=== PATIENT | male | born 1965 | race Caucasian/White ===

== ENCOUNTER → 2020-08-24 14:06 | Outpatient (BNVA) | payer BC, SELFPAY | PROVIDERS: Visit Provider Counselor Professional | DX: F43.12 Post-traumatic stress disorder, chronic (principal); F41.0 Panic disorder [episodic paroxysmal anxiety] | CPT/HCPCS: 90791 ==

== ENCOUNTER → 2020-12-07 13:10 | Outpatient (BNVA) | payer BC, SELFPAY | PROVIDERS: Visit Provider Psychiatry & Neurology Psychiatry | DX: F43.12 Post-traumatic stress disorder, chronic (principal); F33.1 Major depressive disorder, recurrent, moderate; F41.1 Generalized anxiety disorder | CPT/HCPCS: 99204 ==

== ENCOUNTER → 2021-01-10 08:56 | Outpatient (BNVA) | payer BC, SELFPAY | PROVIDERS: Visit Provider Psychiatry & Neurology Psychiatry | DX: F41.1 Generalized anxiety disorder (principal); F33.1 Major depressive disorder, recurrent, moderate; F43.12 Post-traumatic stress disorder, chronic | CPT/HCPCS: 99214 ==

== ENCOUNTER 2023-08-08 14:54 | Emergency (ER) | payer OTHER, BC, SELFPAY ==
[2023-08-08] VITALS (12 sets, daily range): BP systolic 108–143; BP diastolic 73–88; PULSE 80–100; RESP 14–20; TEMP 37.1; O2SAT 95–98; BMI 32.1
--- NOTE | 2023-08-08 15:00 | ECG_ITS ---
[facility] Test Date: 2023-08-08 Pat Name: Anthony Wilde Department: Room: Gender: Male Lab Specialist: : 1965 Requested By: Stephen Carrion Order Number: [id number] Yu MD: Lazaro Virgen M.D. Measurements Intervals [place] Rate: 94 P: 63 [place]: 130 QRS: 77 QRSD: 92 T: 49 QT: 354 QTc: 444 Interpretive Statements SINUS RHYTHM POSSIBLE LEFT ATRIAL ENLARGEMENT [-0.1mV P-WAVE IN V1/V2] INCOMPLETE RIGHT BUNDLE BRANCH BLOCK [90+ ms QRS DURATION, TERMINAL R IN V1/V2, 40+ ms S IN I/aVL/V4/V5/V6] No previous ECG available for comparison Electronically Signed On 08-10-2023 14:08:21 MIDDLE SCHOOL TECHNOLOGY TEACHER by Lazaro Virgen M.D. [id number]
--- NOTE | 2023-08-08 15:05 | XR_ITS ---
WS: [id number] Exam: XR chest 1V portable [id number] Date/Time of Exam: 08/08/2023 3:07 PM Reason For Exam: chest pain No priors. The lungs are hyperinflated and clear. Heart size is normal. Signs of previous CABG surgery and coron serena artery stenting. No pleural effusions. Bony structures are intact. IMPRESSION: 1. Pulmonary hyperinflation which might indicate obstructive lung disease. No acute process.
[2023-08-08 15:37] LABS: Basophils % 0.5 %; Eosinophils # 0.2 10^3/uL (0.0-0.8); Eosinophils % 2.3 %; Hematocrit 42.3 % (37-53); Lymphocytes # 1.3 10^3/uL (0.8-4.8); Lymphocytes % 16.6 %; Mean Corpuscular HGB Conc 33.3 g/dL (30-55); Mean Corpuscular Hemoglobin 30.1 pg (27-33); Mean Corpuscular Volume 90.2 fl (82-101); Mean Platelet Volume 8.8 fL (7.4-10.4); Monocytes # 0.6 10^3/uL (0.2-0.9); Neutrophils # 5.71 10^3/uL (1.8-7.7); Neutrophils % 73.2 %; Nucleated Red Blood Cells % 0 %; Platelet Count 220 10^3/cmm (157-399); Red Blood Count 4.69 10^6/uL (3.85-5.65); Red Cell Distribution Width 13.5 % (12.1-15.1); White Blood Count 7.81 10^3/uL (3.29-11.43)
[2023-08-08 15:45] LABS: INR 1.03 (0.8-1.2)
[2023-08-08 15:51] LABS: Troponin(5th) Baseline 11 ng/L (0-15)
[2023-08-08 15:52] LABS: Alanine Aminotransferase 15 U/L (0-41); Albumin Level 4.5 g/dL (3.5-5.2); Alkaline Phosphatase 119 U/L (40-130); Anion Gap 16.3 (5-19); Aspartate Amino Transferase 22 U/L (0-40); Blood Urea Nitrogen 15 mg/dL (6-20); Calcium 9.2 mg/dL (8.5-10.5); Carbon Dioxide 24 mmol/L (22-29); Chloride 104 mmol/L (98-107); Globulin 2.4 g/dL (1.3-4.6); Glucose 119 mg/dL (65-115); Magnesium 2.1 mg/dL (1.7-2.3); Osmolality Calculated 292 mOsm/kg (285-295); Potassium 4.3 mmol/L (3.5-5.1); Sodium 140 mmol/L (136-145); Total Bilirubin 0.7 mg/dL (0.15-1.2); Total Protein 6.9 g/dL (6.6-8.7)
--- NOTE | 2023-08-08 16:28 | ED_ITS ---
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 Patient states he lives in chronic pain 3-4 every day from his chest just due to poor blood flow and he is on Dilaudid and hydrocodone for this pain. Patient states that last night it got worse and he had to take some Dilaudid. 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 Ford in [facility] [place]. Patient is currently on Eliquis, metoprolol, isosorbide, Zetia, Review of Systems General: Reports: 10 or more systems reviewed and unremarkable except in HPI and below PFSH ED PFSH: Social History Current gender identity: Male Physical Exam Const: COMMON NORMALS: no acute distress, average body habitus, patient oriented x3, no limitations, healthy appearing, alert and well nourished HENMT: COMMON NORMALS: normocephalic, atraumatic, hearing grossly normal bilaterally, external ears normal, Normal external nose present, moist oral mucous membranes and oropharynx normal HEAD & SCALP: normocephalic and atraumatic NOSE: Normal external nose present EXTERNAL EAR: Yes external ears normal Neck/C-Spine: COMMON NORMALS: no JVD Chest: COMMONS NORMALS: normal inspection of the chest and normal palpation of entire chest wall Resp: COMMON NORMALS: normal respiratory effort, No retractions, No use of accessory muscles and clear to auscultation bilaterally AUSCULTATION: clear to auscultation bilaterally Cardio: COMMON NORMALS: no JVD, regular rate, regular rhythm, S1 normal heart sound present, S2 normal heart sound present, No gallops present (Cardio), No clicks present (Cardio), No murmurs present (Cardio) and No rub (Cardio) RATE: regular rate RHYTHM: regular rhythm HEART SOUNDS: S1 normal heart sound present and S2 normal heart sound present GI: COMMON NORMALS: Normal to inspection, nondistended, normoactive bowel sounds present, Soft to palpation, non-tender, No hepatosplenomegaly present and no masses PALPATION: Yes Soft to palpation and Yes No hepatosplenomegaly present Neuro: COMMON NORMALS: patient oriented x3 SENSORIUM/ORIENTATION: Yes alert Course Vital Signs: Vital signs: Vital Signs Temperature 98.8 F 08/08/23 14:57 Pulse Rate 89 08/08/23 19:37 Respiratory Rate 16 08/08/23 19:37 Blood Pressure 133/83 08/08/23 19:37 Pulse Oximetry 96 08/08/23 19:37 Oxygen Delivery Me thod Room Air 08/08/23 16:10 MDM - Chest Pain Medical Decision Making Patient presented to the ER with complaints of chest pain with an extensive cardiac history. Patient was worked up in a standard cardiac fashion with serial troponins EKGs and labs. Troponin baseline was 10 troponin at 120 was 10.6 and troponin at 6-hour was 9.2 EKGs were nonacute and stable. Patient be discharged home Differential Diagnosis Unlikely acute massive pulmonary embolism, acute respiratory failure, acute myocardial infarction, cardiac arrest or sudden cardiac Medical Records I reviewed the patient's medical records. Lab Data I reviewed the patient's lab results. 08/08/23 15:26 08/08/23 15: Laboratory Results WBC 7.81 10^3/uL (3.29-11.43) 08/08/23 15: RBC 4.69 10^6/uL (3.85-5.65) 08/08/23 15: Hgb 14.10 g/dL (11.27-16.99) 08/08/23 15: Hct 42.3 % (37-53) 08/08/23 15: MCV 90.2 fl (82-101) 08/08/23 15: MCH 30.1 pg (27-33) 08/08/23 15: MCHC 33.3 g/dL (30-55) 08/08/23 15: RDW 13.5 % (12.1-15.1) 08/08/23 15: Plt Count 220 10^3/cmm (157-399) 08/08/23 15: MPV 8.8 fL (7.4-10.4) 08/08/23: Neut % (Auto) 73.2 % 08/08/23 15: Lymph % (Auto) 16.6 % 08/08/23 15: [place] % (Auto) 7.0 % 08/08/23 15: Eos % (Auto) 2.3 % 08/08/23 15: Baso % (Auto) 0.5 % 08/08/23: Neut # (Auto) 5.71 10^3/uL (1.8-7.7) 08/08/23: Lymph # (Auto) 1.3 10^3/uL (0.8-4.8) 08/08/23 15: [place] # (Auto) 0.6 10^3/uL (0.2-0.9) 08/08/23: Eos # (Auto) 0.2 10^3/uL (0.0-0.8) 08/08/23: Baso # (Auto) 0.0 10^3/uL (0.0-0.1) 08/08/23: Nucleated RBC % (auto) 0 % 08/08/23 15: Nucleated RBCs # 0.0 /100WBC 08/08/23 15: PT 13.80 SECONDS (12.1-14.9) 08/08/23: INR 1.03 (0.8-1.2) 08/08/23 15: Sodium 140 mmol/L (136-145) 08/08/23 15: Potassium 4.3 mmol/L (3.5-5.1) 08/08/23: Chloride 104 mmol/L (98-107) 08/08/23: Carbon Dioxide 24 mmol/L (22-29) 08/08/23: Anion Gap 16.3 (5-19) 08/08/23: BUN 15 mg/dL (6-20) 08/08/23 15: Creatinine 1.1 mg/dL (0.7-1.2) 08/08/23 15: GFR Calculation 69.0 mL/min (90-130) L 08/08/23 15: Glucose 119 mg/dL (65-115) H 08/08/23 15: Calculated Osmolality 292 mOsm/kg (285-295) 08/08/23 15:26 Calcium 9.2 mg/dL (8.5-10.5) 08/08/23 15:26 Magnesium 2.1 mg/dL (1.7-2.3) 08/08/23 15:26 Total Bilirubin 0.7 mg/dL (0.15-1.2) 08/08/23 15:26 AST 22 U/L (0-40) 08/08/23 15:26 ALT 15 U/L (0-41) 08/08/23 15:26 Alkaline Phosphatase 119 U/L (40-130) 08/08/23 15:26 Troponin T Baseline 11 ng/L (0-15) 08/08/23 15:26 Troponin T 120 Minute 10.63 ng/L (0-15) 08/08/23 17:30 Delta Troponin T -0.37 ABS# (0-10) L 08/08/23 17:30 Troponin T Hi Sens 6Hr 9.29 ng/L (0-15) 08/08/23 21:19 Troponin T Hi Sens 6Hr Delta -1.71 ng/L (0-12) L 08/08/23 21:19 Total Protein 6.9 g/dL (6.6-8.7) 08/08/23 15:26 Albumin 4.5 g/dL (3.5-5.2) 08/08/23 15:26 Globulin 2.4 g/dL (1.3-4.6) 08/08/23 15:26 All radiology interpretation(s) finalized by discharge EKG Data EKG 1: I personally reviewed and interpreted this EKG as follows: EKG interpretation date: 08/08/23 EKG interpretation time: 15:00 Prior EKG tracings: not available for review Interpretation: EKG shows ventricular rate 94 beats a minute, IN interval 130, QRS 92, QTc of 444, sinus rhythm, possible left atrial enlargement, incomplete right bundle branch block, EKG 2: I personally reviewed and interpreted this EKG as follows: EKG interpretation date: 08/08/23 EKG interpretation time: 17:05 Prior EKG tracings: available for review Interpretation: EKG showed ventricular rate 101 bpm, IN interval 136, QRS duration 89, QTc of 405, sinus tachycardia, possible left atrial lodgment, possible right ventricular conduction delay EKG 3: I personally reviewed and interpreted this EKG as follows: EKG interpretation date: 08/08/23 EKG interpretation time: 21:47 Prior EKG tracings: available for review Interpretation: EKG showed ventricular rate 84 bpm, IN interval 131, QRS duration 107, QTc of 418, sinus rhythm, possible left atrial lodgment, incomplete right bundle branch block, Discharge Plan Discharge Patient Disposition: Home Clinical Impression: Chest pain Qualifiers: Chest pain type: unspecified Qualified Code(s): R07.9 - Chest pain, unspecified Condition: Stable Prescriptions: No Action alfuzosin 10 mg tablet extended release 24 hr 10 mg PO DAILY Rx Instructions: administer after the same meal each day Eliquis 5 mg tablet 5 mg PO BID ezetimibe 10 mg tablet 10 mg PO DAILY isosorbide dinitrate 20 mg tablet 20 mg PO BID Rx Instructions: allow nitrate-free interval of 12-14 hrs per 24-hr period lorazepam 0.5 mg tablet 0.5 mg PO Q6H PRN metoprolol succinate 100 mg tablet extended release 24 hr 200 mg PO BID pantoprazole [address] for susp in packet 40 mg PO DAILY promethazine 25 mg tablet 25 mg PO Q6H PRN fluoxetine 20 mg capsule 60 mg PO DAILY Qty: 90 2RF prazosin 2 mg capsule 2 mg PO .HS Qty: 30 2RF hydrocodone-acetaminophen 5-325 mg tablet 2 tab PO Q4H PRN (Reason: pain) nitroglycerin 0.4 mg tablet, sublingual 0.4 mg sublingual Q5M PRN Rx Instructions: do not exceed 3 doses per episode albuterol sulfate 90 mcg/actuation aerosol powdr breath activated 2 inh inhalation Q6H PRN Discharge Orders: Discharge ED (Routine); Ordered 08/08/23 Ordered By: Stephen Carrion Referrals: aCrlin Guillaume [Primary Care Provider] - Patient Instructions: Chest Pain (ED) Activity Restrictions/Additional Instructions: your cardiac enzymes including troponin were stable during her stay at the hospital. please follow-up with your munitions handler supervisor or primary care physician within the next 7 to 10 days or sooner as needed for further evaluation and treatment. If your pain worsens please feel free to return to the ER. Coding Level of Care Code ED Home Care Giver for Ceci Naranjo
[2023-08-08] MEDS: ondansetron 2 mg/ML SDV 2 mL 4 MG IVP (16:59)
[2023-08-08] MEDS: nitroglycerin 0.4 mg sublingual Tablet SUBLINGUAL (16:59)
--- NOTE | 2023-08-08 17:05 | ECG_ITS ---
[facility] Test Date: 2023-08-08 Pat Name: Anthony Wilde Department: Room: Gender: Male Controller Operations And Hr Manager: : 1965 Requested By: Stephen Carrion Order Number: [id number] Yu MD: Lazaro Virgen M.D. Measurements Intervals [place] Rate: 101 P: 60 [place]: 136 QRS: 71 QRSD: 89 T: 43 QT: 347 QTc: 450 Interpretive Statements SINUS TACHYCARDIA POSSIBLE LEFT ATRIAL ENLARGEMENT [-0.1mV P-WAVE IN V1/V2] POSSIBLE RIGHT VENTRICULAR CONDUCTION DELAY [RSR (QR) IN V1/V2] ABNORMAL RHYTHM ECG Compared to ECG 08/08/2023 15:00:27 Sinus rhythm no longer present Incomplete right bundle-branch block no longer present Electronically Signed On 08-10-2023 14:16:18 ORACLE DATABASE DEVELOPER by Lazaro Virgen M.D. [id number]
[2023-08-08] MEDS: promethazine 25 mg/mL SDV 1 mL IM (17:37)
[2023-08-08] MEDS: HYDROmorphone 1 mg/mL INJ 1 mL 0.5 MG IVP ×3 (17:37→22:11)
[2023-08-08 18:33] LABS: Troponin 5 2HR 10.63 ng/L (0-15); Troponin 5 2HR Delta -0.37 ABS# (0-10)
--- NOTE | 2023-08-08 21:47 | ECG_ITS ---
[facility] Test Date: 2023-08-08 Pat Name: Anthony Wilde Department: Room: Gender: Male Secretarial Teacher: : 1965 Requested By: Stephen Carrion Order Number: [id number] Aimee MD: Lazaro Virgen M.D. Measurements Intervals [place] Rate: 84 P: 54 [place]: 131 QRS: 66 QRSD: 107 T: 57 QT: 377 QTc: 448 Interpretive Statements SINUS RHYTHM POSSIBLE LEFT ATRIAL ENLARGEMENT [-0.1mV P-WAVE IN V1/V2] INCOMPLETE RIGHT BUNDLE BRANCH BLOCK [90+ ms QRS DURATION, TERMINAL R IN V1/V2, 40+ ms S IN I/aVL/V4/V5/V6] Compared to ECG 08/08/2023 17:05:26 Incomplete right bundle-branch block now present Sinus tachycardia no longer present Electronically Signed On 08-10-2023 14:16:53 CLINICAL TRIAL EDUCATOR by Lazaro Virgen M.D. [email or web address] Research.Boreal GenomicsIron Will Innovationsuc health.[employer]./store/NU/[id number] f
[2023-08-08 21:48] LABS: Troponin 5 6HR 9.29 ng/L (0-15); Troponin 5 6HR Delta -1.71 ng/L (0-12)
== END 2023-08-08 22:28 | disposition home or self-care (01) ==
PROVIDERS: Emergency Provider Emergency Medicine; PCP Family Medicine
DX: R07.9 Chest pain, unspecified (principal); Z79.01 Long term (current) use of anticoagulants
CPT/HCPCS: 36415; 71045; 80053; 83735; 84484; 85025; 85610; 93005; 96372; 96374; 96375; 96376; 99284; J1170; J2405; J2550

== ENCOUNTER 2024-03-15 13:44 | Inpatient (IN) | payer OTHER, SELFPAY ==
[2024-03-15] VITALS (33 sets, daily range): BP systolic 76–164; BP diastolic 48–91; PULSE 44–75; RESP 0–22; TEMP 36.9–37.1; O2SAT 91–99; BMI 28.8
--- NOTE | 2024-03-15 13:50 | ECG_ITS ---
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 Measurements Intervals [place] Rate: 79 P: 70 [place]: 137 QRS: 88 QRSD: 90 T: 21 QT: 383 QTc: 439 Interpretive Statements SINUS RHYTHM POSSIBLE RIGHT VENTRICULAR CONDUCTION DELAY [RSR (QR) IN V1/V2] NONSPECIFIC T-WAVE ABNORMALITY Compared to ECG 08/08/2023 21:47:56 T-wave abnormality now present Incomplete right bundle-branch block no longer present Electronically Signed On 03-16-2024 9:57:03 CDT by Lazaro Virgen M.D. [email or web address].[email or web address] Networkspremier health [facility].PayProp/store/NU/[id number] f
--- NOTE | 2024-03-15 14:07 | XRR_ITS ---
PROCEDURE INFORMATION: Exam: XR Chest Exam date and time: 03/15/2024 2:34 PM Age: 58 years old Clinical indication: Chest pressure; Patient HX: Chest pain; HX cabg 2018; Additional info: Cp TECHNIQUE: Imaging protocol: Radiologic exam of the chest. Views: 1 view. COMPARISON: CR XR chest 1V portable [id number] 08/08/2023 4:12 PM FINDINGS: Lungs: There is scarring in the mid to lower left lung field similar to the prior study. Minimal overlying hazy opacities present in this region as well which is less prominent when compared to the prior study. Pleural spaces: Unremarkable. No pleural effusion. No pneumothorax. Heart/Mediastinum: Unremarkable. No cardiomegaly. Bones/joints: Unremarkable. Other findings: There are post-sternotomy changes and postoperative changes overlying the mediastinum. XR/XR chest 1V portable [id number] IMPRESSION: There is minimal hazy opacity in the mid to lower left lung field which is less prominent when compared to the prior study.
--- NOTE | 2024-03-15 14:09 | W.ED.CHESTPA ---
HPI - Chest Pain General: Chief Complaint: Chest Pain Stated Complaint: chest pain Time Seen by Provider: 03/15/24 14:00 History of Present Illness: 58-year-old male presents with chest pain. Patient has a cardiac history. He reports he has been having on and off chest pain for couple weeks. It was worse this morning. He took 4 nitros this morning got better. He then got chest pain again and took another nitro and it helped. He had an echo at [facility] yesterday that he showed me results that showed no acute or significant findings. Patient had a cardiac cath earlier this year and at that time there is no indication for stenting. Associated symptoms: Deny dyspnea, fever(s) or palpitations Review of Systems Const: Denies: fever(s) or chills Card: Reports: chest pain; Denies: palpitations or irregular heart rhythm Resp: Denies: dyspnea, productive cough or wheezing Musc: Denies: neck pain or back pain Skin/Breast: Denies: rash Neuro: Denies: headache(s) or numbness in extremities Psych: Denies: anxiety or depression [facility] ED PFSH: Social History Current gender identity: Male Physical Exam Const: COMMON NORMALS: no acute distress, patient oriented x3, no limitations and alert Resp: COMMON NORMALS: normal respiratory effort, No retractions and No use of accessory muscles Cardio: COMMON NORMALS: regular rate and regular rhythm RATE: regular rate RHYTHM: regular rhythm Extremity: COMMON NORMALS: normal to inspection, full ROM and capillary refill normal Neuro: COMMON NORMALS: patient oriented x3, CN's II-XII intact bilaterally, moves all extremities and no focal motor deficits SENSORIUM/ORIENTATION: Yes alert Psych: COMMON NORMALS: mental status grossly normal, Normal thought process present and cooperative THOUGHT PROCESS: Normal thought process present Skin: COMMON NORMALS: no rashes or lesions noted and turgor normal GENERAL SKIN EXAM: no rashes or lesions noted and turgor normal Course Vital Signs: Vital signs: Vital Signs Temperature 98.4 F 03/15/24 13:51 Pulse Rate 55 L 03/15/24 16:30 Respiratory Rate 17 03/15/24 15:06 Blood Pressure 108/60 03/15/24 16:30 Pulse Oximetry 93 03/15/24 16:30 Oxygen Delivery Me thod Room Air 03/15/24 16:05 MDM - Chest Pain Medical Decision Making Patient's diagnostic studies were reviewed interpreted by me. Patient's labs show no acute findings with a negative troponin. Patient has been having his symptoms of on and off chest pain for quite some time. Patient had a negative echo yesterday in which I reviewed outpatient results that he had. Patient is EKG shows sinus rhythm, ventricular rate 79, ME 137, QRS 90 with nonspecific changes with no acute ST changes or elevation noted. Discussed findings with patient. Did offer him transfer to [facility] where his spa concierge is if he felt that that would be indicated. He did also state that he had a negative cath regarding need for stent less than 5 months ago. Patient has been having symptoms for 18 years patient has Dilaudid at home for pain. Patient was initially discharged and then he had another vagal response. Patient returned into the ER. We will admit him for further evaluation due to his repeated vagal response and bradycardia. Patient had another negative EKG that is unchanged. Patient to be admitted to Dr. Green for further inpatient evaluation. Lab Data 03/15/24 14:30 03/15/24 14:30 Radiology Impressions Chest X-Ray 03/15/24 14:07 IMPRESSION: There is minimal hazy opacity in the mid to lower left lung field which is less prominent when compared to the prior study. Laboratory Results WBC 5.64 10^3/uL (3.29-11.43) 03/15/24 14:30 RBC 4.02 10^6/uL (3.85-5.65) 03/15/24 14:30 Hgb 11.70 g/dL (11.27-16.99) 03/15/24 14:30 Hct 36.5 % (37-53) L 03/15/24 14:30 MCV 90.8 fl (82-101) 03/15/24 14:30 MCH 29.1 pg (27-33) 03/15/24 14:30 MCHC 32.1 g/dL (30-55) 03/15/24 14:30 RDW 14.1 % (12.1-15.1) 03/15/24 14:30 Plt Count 203 10^3/cmm (157-399) 03/15/24 14:30 MPV 9.1 fL (7.4-10.4) 03/15/24 14:30 Neut % (Auto) 70.9 % 03/15/24 14:30 Lymph % (Auto) 19.7 % 03/15/24 14:30 [place] % (Auto) 6.7 % 03/15/24 14:30 Eos % (Auto) 1.8 % 03/15/24 14:30 Baso % (Auto) 0.5 % 03/15/24 14:30 Neut # (Auto) 4.00 10^3/uL (1.8-7.7) 03/15/24 14:30 Lymph # (Auto) 1.1 10^3/uL (0.8-4.8) 03/15/24 14:30 [place] # (Auto) 0.4 10^3/uL (0.2-0.9) 03/15/24 14:30 Eos # (Auto) 0.1 10^3/uL (0.0-0.8) 03/15/24 14:30 Baso # (Auto) 0.0 10^3/uL (0.0-0.1) 03/15/24 14:30 Nucleated RBC % (auto) 0 % 03/15/24 14:30 Nucleated RBCs # 0.0 /100WBC 03/15/24 14:30 Sodium 139 mmol/L (136-145) 03/15/24 14:30 Potassium 4.1 mmol/L (3.5-5.1) 03/15/24 14:30 Chloride 103 mmol/L (98-107) 03/15/24 14:30 Carbon Dioxide 24 mmol/L (22-29) 03/15/24 14:30 Anion Gap 16.1 (5-19) 03/15/24 14:30 BUN 12 mg/dL (6-20) 03/15/24 14:30 Creatinine 0.9 mg/dL (0.7-1.2) 03/15/24 14:30 GFR Calculation 87.0 mL/min (90-130) L 03/15/24 14:30 Glucose 96 mg/dL (65-115) 03/15/24 14:30 Calculated Osmolality 288 mOsm/kg (285-295) 03/15/24 14:30 Calcium 8.9 mg/dL (8.5-10.5) 03/15/24 14:30 Total Bilirubin 0.4 mg/dL (0.15-1.2) 03/15/24 14:30 AST 14 U/L (0-40) 03/15/24 14:30 ALT 9 U/L (0-41) 03/15/24 14:30 Alkaline Phosphatase 97 U/L (40-130) 03/15/24 14:30 Troponin T Baseline 12 ng/L (0-15) 03/15/24 14:30 Total Protein 6.2 g/dL (6.6-8.7) L 03/15/24 14:30 Albumin 4.1 g/dL (3.5-5.2) 03/15/24 14:30 Globulin 2.1 g/dL (1.3-4.6) 03/15/24 14:30 XR interpretation done by ED provider, pending radiology final review EKG Data EKG 1: I personally reviewed and interpreted this EKG as follows: EKG interpretation date: 03/15/24 EKG interpretation time: 13:45 Interpretation: Sinus rhythm, ventricular rate 79, ME 137, QRS 90, QTc 417, nonspecific changes, no acute ST changes or elevation noted. Discharge Plan Discharge Patient Disposition: Admitted As Inpatient Clinical Impression: Nonspecific chest pain, Vagal reaction, Bradycardia Condition: Stable Coding Level of Care Code ED Preparation Department Supervisor for Ceci Naranjo
[2024-03-15 14:42] LABS: Basophils % 0.5 %; Eosinophils # 0.1 10^3/uL (0.0-0.8); Eosinophils % 1.8 %; Hematocrit 36.5 % (37-53); Lymphocytes # 1.1 10^3/uL (0.8-4.8); Lymphocytes % 19.7 %; Mean Corpuscular HGB Conc 32.1 g/dL (30-55); Mean Corpuscular Hemoglobin 29.1 pg (27-33); Mean Corpuscular Volume 90.8 fl (82-101); Mean Platelet Volume 9.1 fL (7.4-10.4); Monocytes # 0.4 10^3/uL (0.2-0.9); Monocytes % 6.7 %; Neutrophils % 70.9 %; Nucleated Red Blood Cells % 0 %; Platelet Count 203 10^3/cmm (157-399); Red Blood Count 4.02 10^6/uL (3.85-5.65); Red Cell Distribution Width 14.1 % (12.1-15.1); White Blood Count 5.64 10^3/uL (3.29-11.43)
[2024-03-15 15:02] LABS: Troponin(5th) Baseline 12 ng/L (0-15)
[2024-03-15] MEDS: fentaNYL 50 mcg/mL INJ 2mL IVP (15:06)
[2024-03-15 15:07] LABS: Alanine Aminotransferase 9 U/L (0-41); Albumin Level 4.1 g/dL (3.5-5.2); Alkaline Phosphatase 97 U/L (40-130); Anion Gap 16.1 (5-19); Aspartate Amino Transferase 14 U/L (0-40); Blood Urea Nitrogen 12 mg/dL (6-20); Calcium 8.9 mg/dL (8.5-10.5); Carbon Dioxide 24 mmol/L (22-29); Chloride 103 mmol/L (98-107); Creatinine Clr Calc Pharmacy 96.7222; Globulin 2.1 g/dL (1.3-4.6); Glucose 96 mg/dL (65-115); Osmolality Calculated 288 mOsm/kg (285-295); Potassium 4.1 mmol/L (3.5-5.1); Sodium 139 mmol/L (136-145); Total Bilirubin 0.4 mg/dL (0.15-1.2); Total Protein 6.2 g/dL (6.6-8.7)
[2024-03-15] MEDS: promethazine 25 mg/mL SDV 1 mL IM (15:37)
--- NOTE | 2024-03-15 15:49 | PC.NURSE ---
PT VITAL MONITOR NOTIFIED THIS NURSE THAT PT HEARTRATE HAD DROPPED TO 40S. REPEAT EKG DONE. REPEAT BLOOD PRESSURE. BLOOD PRESSURE 76/51. PT APPEARS PALE AND DIAPHORETIC. PT PLACED IN [place]. ADDITIONAL IV PLACED. MD AWARE. NO NEW ORDERS AT THIS TIME.
--- NOTE | 2024-03-15 16:07 | ECG_ITS ---
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 Measurements Intervals [place] Rate: 43 P: 59 SD: 149 QRS: 70 QRSD: 98 T: 65 QT: 456 QTc: 386 Interpretive Statements SINUS BRADYCARDIA INCOMPLETE RIGHT BUNDLE BRANCH BLOCK [90+ ms QRS DURATION, TERMINAL R IN V1/V2, 40+ ms S IN I/aVL/V4/V5/V6] Compared to ECG 03/15/2024 13:44:56 Incomplete right bundle-branch block now present Sinus rhythm no longer present T-wave abnormality no longer present Electronically Signed On 03-16-2024 9:57:15 CDT by Lazaro Virgen M.D. [email or web address] Medical SolutionsAlgiax Pharmaceuticalsthe [facility].Adviceme [employer]metics/store/OM/[id number]
--- NOTE | 2024-03-15 16:29 | PC.NURSE ---
MD DISCUSSED OPTION TO ADMIT PATIENT OR SEND PATIENT HOME WITH PATIENT. PATIENT STATES HE WANTS TO GO HOME. PATIENT EDUCATED ON WHEN TO COME BACK TO ER AND VERBALIZED UNDERSTANDING.
--- NOTE | 2024-03-15 16:44 | PC.NURSE ---
PROCEEDED WITH PATIENT DISCHARGE. PATIENT SIGNED DISCHARGE PAPERWORK AND WAS BEING WHEELED OUT TO CAR BY NURSE ANDUJAR. ABOUT 5 MINUTES AFTER WALKING OUT THE DOOR, NURSE ANDUJAR CALLED BACK TO THE NURSES STATION REQUESTING ASSISTANCE. PER NURSE CON, PATIENT STATED THAT HE FELT DIZZY AND NAUSEATED ALONG WITH BEING DIAPHORETIC. UPON ASSESSMENT BY THIS NURSE, PATIENT WAS PALE AND CLAMMY. BLOOD PRESSURE WAS 77/51 AND PULSE WAS 49. CHARGE NURSE AND PHYSICIAN NOTIFIED. PATIENT WAS GIVEN THE OPTION TO COME BACK INTO THE ER TO BE ADMITTED OR HE COULD GO HOME. PATIENT VERBALIZED WANTING TO BE ADMITTED.
[2024-03-15] MEDS: sodium chloride 0.9% 1,000 ML 999 ML IV (16:52)
--- NOTE | 2024-03-15 16:52 | ECG_ITS ---
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 Measurements Intervals [place] Rate: 45 P: 48 [place]: 147 QRS: 29 QRSD: 103 T: 57 QT: 471 QTc: 408 Interpretive Statements SINUS BRADYCARDIA POSSIBLE LEFT ATRIAL ENLARGEMENT [-0.1mV P-WAVE IN V1/V2] INCOMPLETE RIGHT BUNDLE BRANCH BLOCK [90+ ms QRS DURATION, TERMINAL R IN V1/V2, 40+ ms S IN I/aVL/V4/V5/V6] Compared to ECG 03/15/2024 15:45:28 No significant changes Electronically Signed On 03-16-2024 9:53:44 CDT by Lazaro Virgen M.D. [email or web address]/store/[id number]
[2024-03-15 17:08] LABS: D Dimer 1.09 ug/mLFEU (0-0.59)
--- NOTE | 2024-03-15 18:42 | P.HP_ITS ---
Providers/Chief Complaint 2 Admitting Physician: Khris Green MD Primary Care Provider: Carlin Redmond Chief Complaint: chest pain History of Present Illness Anthony Wilde is a 58 year old male With a past medical history of CAD, status post CABG at [facility], he also had further cardiac procedure at [facility], he has had 16 stents, he has had a full metal jacket to the LAD, he tells me that on his last coronary angiography in October, he had a couple of 70% lesions, he had 100% lesion to the distal LAD, he tells me that he has been having some chest discomfort for the last week, so he had an echocardiogram done at [facility], he tells me that for the last week he has had anterior chest pain, at times associated with exertion, substernal, at times it is relieved by nitroglycerin, feels nauseous at times, no fevers, chills, no cough, no pleurisy, no shortness of breath. He tells me that this morning he had episodes of chest pain, he took 4 nitroglycerin pills without improvement of chest pain so he came to the emergency room for evaluation, in the ER, his initial troponin was 12, EKG no acute ST-T wave changes, in the emergency room, due to his nausea he was given promethazine, patient had 2 vagal responses in the emergency room, with bradycardia, he denies losing any consciousness, currently sinus bradycardia, normotensive, alert oriented x 4, following all commands Review of Systems 2 Const: Denies: fever(s) or chills Card: Denies: chest pain Resp: Denies: dyspnea GI: Denies: abdominal pain Musc: Denies: neck pain or back pain Medications/Allergies Home Medications Medication Instructions Recorded Confirmed Last Taken Type alfuzosin 10 mg tablet,extended 10 mg PO DAILY 12/07/20 01/10/21 Unknown History release 24 hr apixaban 5 mg tablet (Eliquis) 5 mg PO BID 12/07/20 01/10/21 Unknown History ezetimibe 10 mg tablet 10 mg PO DAILY 12/07/20 01/10/21 Unknown History isosorbide dinitrate 20 mg tablet 20 mg PO BID 12/07/20 01/10/21 Unknown History lorazepam 0.5 mg tablet 0.5 mg PO Q6H PRN 12/07/20 01/10/21 Unknown History metoprolol succinate 100 mg 200 mg PO BID 12/07/20 01/10/21 Unknown History tablet,extended release 24 hr pantoprazole 40 mg granules 40 mg PO DAILY 12/07/20 01/10/21 Unknown History delayed-release for susp in packet promethazine 25 mg tablet 25 mg PO Q6H PRN 12/07/20 01/10/21 Unknown History albuterol sulfate 90 mcg/actuation 2 inh inhalation Q6H PRN 01/10/21 01/10/21 Unknown History breath activated powder inhaler fluoxetine 20 mg capsule 60 mg (3 x 20 mg) PO DAILY #90 caps 01/10/21 01/10/21 Unknown Rx hydrocodone 5 mg-acetaminophen 325 2 tab PO Q4H PRN pain 01/10/21 01/10/21 Unknown History mg tablet nitroglycerin 0.4 mg sublingual 0.4 mg sublingual Q5M PRN 01/10/21 01/10/21 Unknown History tablet prazosin 2 mg capsule 2 mg PO .HS #30 caps 01/10/21 01/10/21 Unknown Rx Allergies Allergy/AdvReac Type Severity Reaction Status Date / Time metoclopramide [From Reglan] Allergy Severe agitation Verified 03/15/24 13:55 Opioids - Morphine Analogues Allergy Mild does not Verified 03/15/24 13:55 work isosorbide Allergy ADR-Blurry Verified 03/15/24 13:58 Vision lisinopril Allergy ADR-Cough Verified 03/15/24 13:58 prochlorperazine Allergy ADR-Agitate Verified 03/15/24 13:55 [From Compazine] d MONONITRATE Allergy ADR-Blurry Uncoded 03/15/24 13:58 Vision PFSH Acute 2 PFSH: Medical History History of CAD (coronary artery disease) Surgical History History of heart artery stent History of coronary artery bypass graft Family History Other CAD (coronary artery disease) Social History Smoking and tobacco/nicotine status: never used tobacco/nicotine Alcohol intake: never Substance/Drug Use: never Current gender identity: Male Vitals/I&O/Wt Last Vital Signs Temp 98.4 F 03/15/24 13:51 Pulse 48 L 03/15/24 17:30 Resp 15 03/15/24 17:30 BP 117/65 03/15/24 17:30 Pulse Ox 99 03/15/24 17:30 O2 Del Method Room Air 03/15/24 18:00 Weight last 48 hrs Weight 86.183 kg Physical Exam 2 Const: COMMON NORMALS: no acute distress and patient oriented x3 HENMT: COMMON NORMALS: normocephalic HEAD & SCALP: normocephalic Eye: COMMON NORMALS: Equal, round and reactive pupils present and EOMs intact bilaterally Neck/C-Spine: COMMON NORMALS: no JVD Lymph: LYMPHATIC: no lymphadenopathy noted Resp: COMMON NORMALS: normal respiratory effort, No retractions, No use of accessory muscles and clear to auscultation bilaterally AUSCULTATION: clear to auscultation bilaterally Cardio: COMMON NORMALS: no JVD, regular rate, regular rhythm, S1 normal heart sound present and S2 normal heart sound present RATE: regular rate RHYTHM: regular rhythm HEART SOUNDS: S1 normal heart sound present and S2 normal heart sound present GI: COMMON NORMALS: Normal to inspection, nondistended, normoactive bowel sounds present, Soft to palpation and non-tender Extremity: COMMON NORMALS: no calf tenderness and no pedal edema Neuro: COMMON NORMALS: patient oriented x3, CN's II-XII intact bilaterally and moves all extremities Psych: COMMON NORMALS: mental status grossly normal Data 03/15/24 14:30 03/15/24 14:30 A&P Assessment and plan (1) Unstable angina: (2) Bradycardia: Plan Unstable angina -Complex cardiac history, full metal jacket LAD, 16 stents, CABG at [place], further cardiac interventions in [place] ? Plan ? Consult cardiology ? Heparin drip ? Nitroglycerin drip ? Dilaudid 0.5 mg every 4 hours as needed for pain ? Can consider Ranexa ? Aspirin ? Statin, ? Will hold off of beta-stephany due to bradycardia ? Cardiac echo ? Monitor for recurrent chest pain ? Monitor closely in the ICU ? Serial EKGs, serial troponins, telemetry monitoring Full code ?heparin for DVT prophylaxis Attestations 2 Medical Necessity Statement*: Patient requires hospitalization, inpatient, greater than 2 midnights, for unstable angina, vasovagal episode, bradycardia Diagnoses Unstable angina I20.0 Bradycardia R00.1
[2024-03-15 19:19] LABS: Platelet Count 179 10^3/cmm (157-399)
[2024-03-15 19:35] LABS: Lactic Sepsis W/Reflex 1.1 mmol/L (0.5-2.2)
[2024-03-15 19:37] LABS: Troponin 5 2HR 11.95 ng/L (0-15); Troponin 5 2HR Delta -0.05 ABS# (0-10)
[2024-03-15 19:40] LABS: INR 1.17 (0.8-1.2)
[2024-03-15] MEDS: aspirin 81 mg EC Tablet PO (19:46)
[2024-03-15 19:47] LABS: Chol HDL Ratio 2.84 mg/dL (1.0-5.00); Cholesterol 128 mg/dL (0-200); HDL Cholesterol 45 mg/dL (60-100); LDL Cholesterol Calculated 64 mg/dL (50-129); LDL HDL Ratio 1.42 RATIO (0.00-3.22); NT Pro B Type Natriuretic Pept 593 pg/mL (0-125); Thyroid Stimulating Hormone 1.84 uIU/mL (0.27-4.20); Triglycerides 97 mg/dL (0-150)
[2024-03-15] MEDS: heparin drip 25,000 UNIT/500 ML PREMIX 24 UNIT IV (19:49)
[2024-03-15] MEDS: nitroglycerin drip 50 MG/250 ML PREMIX IV (19:51)
--- NOTE | 2024-03-15 19:56 | PM.CONSULT ---
Providers/Reason For Consult Consulting Physician/Specialty*: Cardiovascular medicine Reason for Consult*: Chest pain Requesting Physician: Hospitalist Attending Physician: Khris Green MD Primary Care Provider: Carlin Redmond History of Present Illness History of Present Illness Anthony Wilde is a 58 year old male with a cardiac history. He has coronary disease and had two-vessel bypass surgery [facility] in 2018. He tells me that he has had constant chest pain since he had bypass surgery until early October of this year when he says it was discovered the chest pain was related to Brilinta. He was taken off Brilinta. He tends to move from hospital to hospital having been seen in [facility], [facility] and in [place]. His last visit to the emergency room here was in July of last year where his EKGs were normal and his troponins were negative. He went to [place] and October and an angiogram was done. This revealed 50% proximal LAD lesion, 10% mid right coronary artery lesion, 20% ramus intermedius lesion, 30% first obtuse marginal lesion and 40 and 90% right posterior descending artery lesions. Ventriculography revealed mild left ventricular dysfunction with an ejection fraction of 55%. 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 The saphenous vein graft to the posterior descending artery was patent. There were no targets for intervention. The note said that there was no change from the angiogram of the April 06, 2023. An echo at that time revealed an ejection fraction of 62%. He states that he has done well until about 2 weeks ago when he started having chest pain frequently. He says it is severe anywhere from a 6 to a 10 on a 10 scale. He takes nitroglycerin without any benefit. This morning at 8:00 he had chest pain, took 4 nitroglycerin and came to the emergency room. He became nauseated in the emergency room, was given promethazine and then had an episode of bradycardia. His EKGs have been basically normal. There was one from the emergency room visit in July of last year which showed sinus rhythm with left atrial enlargement right ventricular conduction delay and no ST changes. Today he has had 3 EKGs all of which have been identical other than numbers 2 and 3 which were reflective of the bradycardia he had in the emergency room. There were no ST changes. His labs are all unremarkable. His chest x-ray is unremarkable. His troponins are 10 and 11. He tells me that he has had 16 stents. He also tells me he was evaluated for a transplant sometime last year in [place]. He says they told him that he was not eligible because his heart muscle was still good. Currently he tells me that he is having 6 out of 10 chest pain at rest. The hospitalist has ordered IV nitroglycerin and heparin. He knew he had been given fentanyl 50 mcg in the emergency room intravenously. He called the medication out to me by name. He also tells me that he takes Dilaudid at home for the pain. I would switch him over to narcotics by mouth. Review of Systems Narrative: Review of systems is negative Medications/Allergies Home Medications Medication Instructions Recorded Confirmed Last Taken Type alfuzosin 10 mg tablet,extended 10 mg PO DAILY 12/07/20 01/10/21 Unknown History release 24 hr apixaban 5 mg tablet (Eliquis) 5 mg PO BID 12/07/20 01/10/21 Unknown History ezetimibe 10 mg tablet 10 mg PO DAILY 12/07/20 01/10/21 Unknown History isosorbide dinitrate 20 mg tablet 20 mg PO BID 12/07/20 01/10/21 Unknown History lorazepam 0.5 mg tablet 0.5 mg PO Q6H PRN 12/07/20 01/10/21 Unknown History metoprolol succinate 100 mg 200 mg PO BID 12/07/20 01/10/21 Unknown History tablet,extended release 24 hr pantoprazole 40 mg granules 40 mg PO DAILY 12/07/20 01/10/21 Unknown History delayed-release for susp in packet promethazine 25 mg tablet 25 mg PO Q6H PRN 12/07/20 01/10/21 Unknown History albuterol sulfate 90 mcg/actuation 2 inh inhalation Q6H PRN 01/10/21 01/10/21 Unknown History breath activated powder inhaler fluoxetine 20 mg capsule 60 mg (3 x 20 mg) PO DAILY #90 caps 01/10/21 01/10/21 Unknown Rx hydrocodone 5 mg-acetaminophen 325 2 tab PO Q4H PRN pain 01/10/21 01/10/21 Unknown History mg tablet nitroglycerin 0.4 mg sublingual 0.4 mg sublingual Q5M PRN 01/10/21 01/10/21 Unknown History tablet prazosin 2 mg capsule 2 mg PO .HS #30 caps 01/10/21 01/10/21 Unknown Rx Allergies Allergy/AdvReac Type Severity Reaction Status Date / Time metoclopramide [From Reglan] Allergy Severe agitation Verified 03/15/24 13:55 Opioids - Morphine Analogues Allergy Mild does not Verified 03/15/24 13:55 work isosorbide Allergy ADR-Blurry Verified 03/15/24 13:58 Vision lisinopril Allergy ADR-Cough Verified 03/15/24 13:58 prochlorperazine Allergy ADR-Agitate Verified 03/15/24 13:55 [From Compazine] d MONONITRATE Allergy ADR-Blurry Uncoded 03/15/24 13:58 Vision Current Medications Generic Name Dose Route Start Last Admin Trade Name Freq PRN Reason Stop Dose Admin Aspirin 81 mg 03/15/24 18:40 03/15/24 19:46 Aspirin 81 Mg Ec Tablet PO 81 mg DAILY LUCIE Administration Nitroglycerin/Dextrose 50 mg in 250 mls @ 0 mls/hr 03/15/24 18:45 03/15/24 19:51 Nitroglycerin Drip IV 10 mcg/min .Q0M LUCIE 3 mls/hr Administration Protocol Per Protocol Heparin Sodium/Sodium Chloride 25,000 unit in 500 mls @ 0 mls/hr 03/15/24 18:45 03/15/24 19:49 Heparin Drip IV 13.92 unit/kg/hr .Q0M LUCIE 24 mls/hr Administration Protocol Per Protocol PFSH Acute PFSH: Medical History (Updated 03/15/24 @ 20:05 by Lazaro Virgen MD) History of CAD (coronary artery disease) Surgical History (Updated 03/15/24 @ 20:05 by Lazaro Virgen MD) History of heart artery stent History of coronary artery bypass graft Family History Other CAD (coronary artery disease) Social History Smoking and tobacco/nicotine status: never used tobacco/nicotine Alcohol intake: never Substance/Drug Use: never Current gender identity: Male Vitals/I&O/Wt Last Vital Signs Temp 98.4 F 03/15/24 13:51 Pulse 48 L 03/15/24 17:30 Resp 15 03/15/24 17:30 BP 117/65 03/15/24 17:30 Pulse Ox 99 03/15/24 17:30 O2 Del Method Room Air 03/15/24 18:00 Weight last 48 hrs Weight 190 lb Weight 190 lb Physical Exam Narrative: GENERAL: In general he complains of 6 out of 10 chest pain but looks perfectly comfortable HEENT: Exam within normal limits. NECK: Supple without jugular vein distention. The carotid upstroke is normal without bruits. BACK: Exam normal. LUNGS: Clear. HEART: Regular rate and rhythm. ABDOMEN: Benign without organomegaly or tenderness. EXTREMITIES: No edema. NEUROLOGIC: Exam normal. SKIN: Unremarkable. Data 03/15/24 19:09 03/15/24 14:30 A&P Assessment and plan (1) Nonspecific chest pain: (2) Vagal reaction: (3) History of coronary artery bypass graft: (4) History of CAD (coronary artery disease): Plan I am skeptical that this is angina. He is lying there perfectly comfortable complaining of 6 out of 10 chest pain. There are absolutely no ST changes on his EKG and his troponins are negative. He had an angiogram 4 months ago which did not require intervention and looked the same as it did 1 year ago. The likelihood that his coronary circulation has changed in the last 4 months is pretty low. I would not continue the IV nitro and heparin for very long. I would change him back over to his medical regimen and get him up and around. There is certainly no indication for angiography, echo or stress testing. At this point he needs to be treated medically. If he or his family insist upon further angiography then he should be transferred to [place] or [place]. There may well be an emotional component to this scenario. Consult Attestations Medical Necessity Statement: Hospitalization for management of chest pain and Moderate Time for a total of 40 minutes, includes placing orders and coordinating care Diagnoses Nonspecific chest pain R07.9 Vagal reaction R55 History of coronary artery bypass graft Z95.1 History of CAD (coronary artery disease) Z86.79
[2024-03-15] MEDS: HYDROmorphone 1 mg/mL INJ 1 mL 0.5 MG IVP (20:03)
[2024-03-15] MEDS: LORazepam 0.5 mg Tablet 0.25 MG PO (21:24)
[2024-03-15 21:29] LABS: Estmated Average Glucose 82; Hemoglobin A1C 4.5 % (4.0-6.0)
[2024-03-15 23:23] LABS: Troponin 5 6HR 11.55 ng/L (0-15)
[2024-03-15 23:24] LABS: Troponin 5 6HR Delta -0.45 ng/L (0-12)
[2024-03-16] VITALS (37 sets, daily range): BP systolic 110–153; BP diastolic 57–96; PULSE 51–79; RESP 0–22; TEMP 36.4–36.7; O2SAT 93–98
[2024-03-16 02:37] LABS: Basophils % 0.4 %; Eosinophils # 0.1 10^3/uL (0.0-0.8); Eosinophils % 1.8 %; Hematocrit 33.1 % (37-53); Lymphocytes # 1.2 10^3/uL (0.8-4.8); Lymphocytes % 20.9 %; Mean Corpuscular Hemoglobin 28.8 pg (27-33); Mean Corpuscular Volume 89.9 fl (82-101); Mean Platelet Volume 8.9 fL (7.4-10.4); Monocytes # 0.4 10^3/uL (0.2-0.9); Monocytes % 7.8 %; Neutrophils % 68.9 %; Nucleated Red Blood Cells % 0 %; Platelet Count 173 10^3/cmm (157-399); Red Blood Count 3.68 10^6/uL (3.85-5.65); White Blood Count 5.65 10^3/uL (3.29-11.43)
[2024-03-16 02:57] LABS: Partial Thromboplastin Time 77.9 SECONDS (23.9-36.7)
[2024-03-16 02:58] LABS: Alanine Aminotransferase 8 U/L (0-41); Albumin Level 3.6 g/dL (3.5-5.2); Alkaline Phosphatase 86 U/L (40-130); Anion Gap 10.7 (5-19); Aspartate Amino Transferase 15 U/L (0-40); Blood Urea Nitrogen 11 mg/dL (6-20); Calcium 8.5 mg/dL (8.5-10.5); Carbon Dioxide 25 mmol/L (22-29); Chloride 107 mmol/L (98-107); Creatinine Clr Calc Pharmacy 108.8124; Globulin 2.4 g/dL (1.3-4.6); Glomerular Filtration Rate 99.6 mL/min (90-130); Glucose 104 mg/dL (65-115); Magnesium 1.9 mg/dL (1.7-2.3); Osmolality Calculated 288 mOsm/kg (285-295); Phosphorus 3.6 mg/dL (2.5-4.5); Potassium 3.7 mmol/L (3.5-5.1); Sodium 139 mmol/L (136-145); Total Bilirubin 0.4 mg/dL (0.15-1.2)
--- NOTE | 2024-03-16 06:00 | USCV_ITS ---
Anthony Wilde Age: 58 Gender: M : 1965 Exam Date: 03/16/2024 07:35 Ordering Phys: Khris Green MD Technologist: Bhupinder Rowe Exam Location: [facility] [place]ication: chest pain BP: 152 / 80 HR: 58 Rhythm: Sinus Technical Quality: Suboptimal MEASUREMENTS (Male / Female) Normal Values 2D ECHO LV Diastolic Diameter PLAX 5.0 cm 4.2 - 5.9 / 3.9 - 5.3 cm IVS Diastolic Thickness 1.3 cm 0.6 - 1.0 / 0.6 - 0.9 cm IVS Systolic Thickness 1.5 cm LVPW Diastolic Thickness 1.6 cm 0.6 - 1.0 / 0.6 - 0.9 cm LVPW Systolic Thickness 2.2 cm LVOT Diameter 2.0 cm LV Ejection Fraction 2D Teich 67.7 % LV Ejection Fraction MOD 2C 72.9 % LV Ejection Fraction 2C AL 73.6 % LA Diameter 4.5 cm RA Systolic Volume 4C AL 41.7 ml RA Systolic Volume 4C MOD 42.0 ml LA Sys Volume AL 61.1 cm cubed LA Sys Volume Index AL 29.7 cm cubed/m squared Aorta at Sinotubular Diameter 2.2 cm M-MODE LA Ao Ratio MM 1.4 AV Cusp Separation MM 1.9 cm DOPPLER AV Peak Velocity 137.0 cm/s LVOT Peak Velocity 105.0 cm/s AV Area Cont Eq vti 2.2 cm squared AV Area Cont Eq pk 2.5 cm squared MV Peak Velocity 107.0 cm/s MV Area PHT 6.8 cm squared Mitral E to A Ratio 1.5 TR Peak Velocity 385.0 cm/s TR Peak Gradient 59.3 mmHg TR Mean Velocity 316.0 cm/s TR Mean Gradient 42.2 mmHg TR Velocity Time Integral 92.6 cm PV Peak Velocity 88.0 cm/s RV Ejection Time 0.4 s FINDINGS Left Ventricle Normal left ventricular size, systolic function and wall thickness, with no regional wall motion abnormalities. Grade I/IV diastolic dysfunction (abnormal relaxation filling pattern), normal to mildly elevated filling pressures. Left ventricular ejection fraction is estimated at 60 %. Right Ventricle Normal right ventricular size and systolic function. Right Atrium The right atrium is normal in size. Left Atrium Mildly increased left atrial size. Mitral Valve Structurally normal mitral valve. Mild mitral valve regurgitation. Aortic Valve Structurally normal aortic valve without significant sclerosis or stenosis. There is no aortic regurgitation. Tricuspid Valve Structurally normal tricuspid valve without significant stenosis or regurgitation. Pulmonary artery systolic pressure is normal. Pulmonic Valve Pulmonic valve not well visualized. Moderate pulmonary valve regurgitation. Pericardium Normal pericardium without effusion. Aorta Normal ascending aorta dimension. IVC Inferior vena cava not visualized. CONCLUSIONS Normal left ventricular size, systolic function and wall thickness, with no regional wall motion abnormalities. Grade I/IV diastolic dysfunction (abnormal relaxation filling pattern), normal to mildly elevated filling pressures. Left ventricular ejection fraction is estimated at 60 %. Structurally normal mitral valve. Mild mitral valve regurgitation. Mildly increased left atrial size. There are no prior echocardiogram studies to compare. Dr. Lazaro Virgen MD (Electronically Signed) Final Date: 16 March 2024 08:43 S
--- NOTE | 2024-03-16 08:26 | P.PN_ITS ---
Subjective 2 Subjective: Uneventful night. Chest pain has gone away. Still on IV nitro and heparin. Third troponin was negative. EKGs remain normal. 1 dose of Dilaudid last evening. Vitals/I&O/Wt Last Vital Signs Temp 97.6 F 03/16/24 03:00 Pulse 52 L 03/16/24 08:00 Resp 6 L 03/16/24 04:15 BP 152/80 03/16/24 04:15 Pulse Ox 96 03/16/24 04:15 O2 Del Method Room Air 03/15/24 20:21 03/15/24 03/16/24 03/16/24 22:59 06:59 14:59 Intake Total 480 / 480 192.8 / 672.8 1000 / 1000 Output Total 200 / 200 500 / 700 Balance 280 / 280 -307.2 / -27.2 1000 / 1000 Weight last 48 hrs Weight 190 lb Weight 190 lb Physical Exam 2 Narrative: GENERAL: In general he looks and feels well HEENT: Exam within normal limits. NECK: Supple without jugular vein distention. The carotid upstroke is normal without bruits. BACK: Exam normal. LUNGS: Clear. HEART: Regular rate and rhythm. ABDOMEN: Benign without organomegaly or tenderness. EXTREMITIES: No edema. NEUROLOGIC: Exam normal. SKIN: Unremarkable. Data 03/16/24 02:16 03/16/24 02:16 A&P Assessment and plan (1) Nonspecific chest pain: (2) History of CAD (coronary artery disease): (3) History of coronary artery bypass graft: Plan I would strongly recommend discontinuing the nitroglycerin and heparin and getting him up and around. I recommend medical treatment and no further cardiac investigation at this time. Attestations 2 Medical Necessity Statement*: Hospitalization for chest pain. and Moderate Time for a total of 35 minutes, includes reviewing past or interval history, examining/interviewing patient, placing orders, counseling patient/family/other support, updating patient/family/other support, discussing plan of care with staff, communicating with other healthcare providers and documenting encounter Diagnoses Nonspecific chest pain R07.9 History of CAD (coronary artery disease) Z86.79 History of coronary artery bypass graft Z95.1
[2024-03-16] MEDS: pantoprazole 40 mg SDV IVP (08:55)
[2024-03-16] MEDS: aspirin 81 mg EC Tablet PO (08:55)
[2024-03-16] MEDS: fluoxetine 20 mg Capsule 60 MG PO (08:55)
--- NOTE | 2024-03-16 09:28 | PC.NURSE ---
pt requested iv removed from left ac space, it has shooting pains everytime i move my arm . site removed and pressure dressing applied as nitro and heparin gtt stopped per orders, as soon as nitro off pt c/o chest pain doctor notified
--- NOTE | 2024-03-16 09:58 | PC.NURSE ---
doctor called to change route of dilaudid to po as home dose and iv out and pt related i would rather have iv so it works faster , explained that need to switch to po so can go home
[2024-03-16 10:13] LABS: Partial Thromboplastin Time 58.5 SECONDS (23.9-36.7)
--- NOTE | 2024-03-16 12:23 | PM.DCS ---
Discharge Providers Date of Admission: 03/15/24 16:53 Date of Discharge: March 16, 2024 Attending Provider at Admission: Khris Green MD Attending Provider at Discharge: Khris Green MD Primary Care Provider: Carlin Redmond Diagnoses at Discharge Discharge Diagnosis (1) Nonspecific chest pain: Status: Acute (2) History of CAD (coronary artery disease): Status: Acute (3) History of coronary artery bypass graft: Status: Acute Reason for Visit Reason for Visit: chest pain Hospital Course Hospital Course Anthony Wilde is a 58 year old male With a past medical history of CAD, status post CABG at [facility], he also had further cardiac procedure at [facility], he has had 16 stents, he has had a full metal jacket to the LAD, he tells me that on his last coronary angiography in October, he had a couple of 70% lesions, he had 100% lesion to the distal LAD, he tells me that he has been having some chest discomfort for the last week, so he had an echocardiogram done at [facility], he tells me that for the last week he has had anterior chest pain, at times associated with exertion, substernal, at times it is relieved by nitroglycerin, feels nauseous at times, no fevers, chills, no cough, no pleurisy, no shortness of breath. He tells me that this morning he had episodes of chest pain, he took 4 nitroglycerin pills without improvement of chest pain so he came to the emergency room for evaluation, in the ER, his initial troponin was 12, EKG no acute ST-T wave changes, in the emergency room, due to his nausea he was given promethazine, patient had 2 vagal responses in the emergency room, with bradycardia, he denies losing any consciousness, currently sinus bradycardia, normotensive, alert oriented x 4, following all commands Patient was admitted to [facility] for chest pain, unstable angina, received a nitroglycerin drip, heparin drip, cardiology was consulted, no significant troponin elevation, no acute ST-T wave changes on EKG, echocardiogram did not show any acute findings, after cardiology consultation, decision was made to pursue medical management. Overall patient's chest pain resolved, discharged with close follow-up with primary care, follow-up with cardiology in [facility], where he has been evaluated for possible heart transplant consideration. Patient was advised if he has any recurrent chest pain, please go to the emergency room. Patient has home Dilaudid and Vicodin for chest discomfort, for she uses as needed, I have advised him to use narcotics sparingly, risk of addiction, morbidity or mortality associate with overdose, advised him to do not drive or operate heavy machinery or drink while taking medication or use together, monitor for narcotic overdose, if any concerns for narcotic overdose call 911 and use Narcan Physical Exam Const: COMMON NORMALS: no acute distress and patient oriented x3 Resp: COMMON NORMALS: normal respiratory effort, No retractions, No use of accessory muscles and clear to auscultation bilaterally AUSCULTATION: clear to auscultation bilaterally Cardio: COMMON NORMALS: regular rate, regular rhythm, S1 normal heart sound present and S2 normal heart sound present RATE: regular rate RHYTHM: regular rhythm HEART SOUNDS: S1 normal heart sound present and S2 normal heart sound present GI: COMMON NORMALS: Normal to inspection, nondistended, normoactive bowel sounds present and non-tender Extremity: COMMON NORMALS: no pedal edema Neuro: COMMON NORMALS: patient oriented x3 Psych: COMMON NORMALS: mental status grossly normal Discharge Data Studies Completed and Pending Completed Studies During Hospitalization Category Date Time Status XR chest 1V portable [id number] Stat Exams 03/15/24 14:07 Completed CV. echo complete* [id number] Routine Ultrasound 03/16/24 06:00 Completed Pending at discharge Category Date Time Status CK-MB (CK-2) Routine Lab 03/15/24 19:09 Received Complete Blood Count w/Auto AM LABS Lab 03/17/24 04:00 Ordered Complete Blood Count w/Auto AM LABS Lab 03/18/24 04:00 Ordered Comprehensive Metabolic Panel AM LABS Lab 03/17/24 04:00 Ordered Comprehensive Metabolic Panel AM LABS Lab 03/18/24 04:00 Ordered Magnesium AM LABS Lab 03/17/24 04:00 Ordered Magnesium AM LABS Lab 03/18/24 04:00 Ordered Phosphorus AM LABS Lab 03/17/24 04:00 Ordered Phosphorus AM LABS Lab 03/18/24 04:00 Ordered Radiology Impressions Chest X-Ray 03/15/24 14:07 IMPRESSION: There is minimal hazy opacity in the mid to lower left lung field which is less prominent when compared to the prior study. Laboratory Results WBC 5.65 10^3/uL (3.29-11.43) 03/16/24 02:16 RBC 3.68 10^6/uL (3.85-5.65) L 03/16/24 02:16 Hgb 10.60 g/dL (11.27-16.99) L 03/16/24 02:16 Hct 33.1 % (37-53) L 03/16/24 02:16 MCV 89.9 fl (82-101) 03/16/24 02:16 MCH 28.8 pg (27-33) 03/16/24 02:16 MCHC 32.0 g/dL (30-55) 03/16/24 02:16 RDW 14.0 % (12.1-15.1) 03/16/24 02:16 Plt Count 173 10^3/cmm (157-399) 03/16/24 02:16 MPV 8.9 fL (7.4-10.4) 03/16/24 02:16 Neut % (Auto) 68.9 % 03/16/24 02:16 Lymph % (Auto) 20.9 % 03/16/24 02:16 Bradford % (Auto) 7.8 % 03/16/24 02:16 Eos % (Auto) 1.8 % 03/16/24 02:16 Baso % (Auto) 0.4 % 03/16/24 02:16 Neut # (Auto) 3.90 10^3/uL (1.8-7.7) 03/16/24 02:16 Lymph # (Auto) 1.2 10^3/uL (0.8-4.8) 03/16/24 02:16 Bradford # (Auto) 0.4 10^3/uL (0.2-0.9) 03/16/24 02:16 Eos # (Auto) 0.1 10^3/uL (0.0-0.8) 03/16/24 02:16 Baso # (Auto) 0.0 10^3/uL (0.0-0.1) 03/16/24 02:16 Nucleated RBC % (auto) 0 % 03/16/24 02:16 Nucleated RBCs # 0.0 /100WBC 03/16/24 02:16 PT 15.30 SECONDS (12.1-14.9) H 03/15/24 19:09 INR 1.17 (0.8-1.2) 03/15/24 19:09 APTT 58.5 SECONDS (23.9-36.7) H 03/16/24 09:31 D-Dimer 1.09 ug/mLFEU (0-0.59) H 03/15/24 14:30 Sodium 139 mmol/L (136-145) 03/16/24 02:16 Potassium 3.7 mmol/L (3.5-5.1) 03/16/24 02:16 Chloride 107 mmol/L (98-107) 03/16/24 02:16 Carbon Dioxide 25 mmol/L (22-29) 03/16/24 02:16 Anion Gap 10.7 (5-19) 03/16/24 02:16 BUN 11 mg/dL (6-20) 03/16/24 02:16 Creatinine 0.8 mg/dL (0.7-1.2) 03/16/24 02:16 GFR Calculation 99.6 mL/min (90-130) 03/16/24 02:16 Glucose 104 mg/dL (65-115) 03/16/24 02:16 Estimat Average Glucose 82 03/15/24 19:09 Hemoglobin A1c 4.5 % (4.0-6.0) 03/15/24 19:09 Calculated Osmolality 288 mOsm/kg (285-295) 03/16/24 02:16 Lactic Acid 1.1 mmol/L (0.5-2.2) 03/15/24 19:09 Calcium 8.5 mg/dL (8.5-10.5) 03/16/24 02:16 Phosphorus 3.6 mg/dL (2.5-4.5) 03/16/24 02:16 Magnesium 1.9 mg/dL (1.7-2.3) 03/16/24 02:16 Total Bilirubin 0.4 mg/dL (0.15-1.2) 03/16/24 02:16 AST 15 U/L (0-40) 03/16/24 02:16 ALT 8 U/L (0-41) 03/16/24 02:16 Alkaline Phosphatase 86 U/L (40-130) 03/16/24 02:16 Troponin T Baseline 12 ng/L (0-15) 03/15/24 14:30 Troponin T 120 Minute 11.95 ng/L (0-15) 03/15/24 19:09 Delta Troponin T -0.05 ABS# (0-10) L 03/15/24 19:09 Troponin T Hi Sens 6Hr 11.55 ng/L (0-15) 03/15/24 23:01 Troponin T Hi Sens 6Hr Delta -0.45 ng/L (0-12) L 03/15/24 23:01 NT-Pro-B Natriuret Pep 593 pg/mL (0-125) H 03/15/24 19:09 Total Protein 6.0 g/dL (6.6-8.7) L 03/16/24 02:16 Albumin 3.6 g/dL (3.5-5.2) 03/16/24 02:16 Globulin 2.4 g/dL (1.3-4.6) 03/16/24 02:16 Triglycerides 97 mg/dL (0-150) 03/15/24 19:09 Cholesterol 128 mg/dL (0-200) 03/15/24 19:09 LDL Cholesterol, Calc 64 mg/dL (50-129) 03/15/24 19:09 HDL Cholesterol 45 mg/dL (60-100) L 03/15/24 19:09 LDL/HDL Ratio 1.42 RATIO (0.00-3.22) 03/15/24 19:09 Cholesterol/HDL Ratio 2.84 mg/dL (1.0-5.00) 03/15/24 19:09 TSH 1.84 uIU/mL (0.27-4.20) 03/15/24 19:09 Vitals Last Vital Signs Temp 97.6 F 03/16/24 03:00 Pulse 57 L 03/16/24 12:00 Resp 19 H 03/16/24 12:00 BP 121/64 03/16/24 10:00 Pulse Ox 98 03/16/24 09:56 O2 Del Method Room Air 03/15/24 20:21 Discharge Plan Discharge Patient Disposition: Home Condition: Stable Prescriptions: Continued alfuzosin 10 mg tablet extended release 24 hr 10 mg PO DAILY Rx Instructions: administer after the same meal each day Eliquis 5 mg tablet 5 mg PO BID ezetimibe 10 mg tablet 10 mg PO DAILY isosorbide dinitrate 20 mg tablet 20 mg PO BID Rx Instructions: allow nitrate-free interval of 12-14 hrs per 24-hr period lorazepam 0.5 mg tablet 0.5 mg PO Q6H PRN (Reason: Anxiety) pantoprazole [address] for susp in packet 40 mg PO DAILY fluoxetine 20 mg capsule 60 mg PO DAILY Qty: 90 2RF prazosin 2 mg capsule 2 mg PO .HS Qty: 30 2RF hydrocodone-acetaminophen 5-325 mg tablet 2 tab PO Q4H PRN (Reason: pain) nitroglycerin 0.4 mg tablet, sublingual 0.4 mg sublingual Q5M PRN (Reason: Angina) Rx Instructions: do not exceed 3 doses per episode Discontinued promethazine 25 mg tablet 25 mg PO Q6H PRN (Reason: Nausea) Discharge Orders: Discharge Order (Routine); Ordered 03/16/24 Ordered By: Khris Green Referrals: Carlin Redmond [Primary Care Provider] - Discharge Activity: Resume usual activity Patient Instructions: Angina (ED), Chest Pain (ED), Opioid Safety, Pain Management Activity Restrictions/Additional Instructions: Please follow-up with your 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 Discharge Attestations Time Spent in Discharge Care*: greater than 30 min Quality Metrics Clinical Quality Measures [ No reported AMI, CVA or VTE this stay] Coding Level of Care Code 14439 Total time (in minutes) for Discharge: 45 Diagnoses Nonspecific chest pain R07.9 History of CAD (coronary artery disease) Z86.79 History of coronary artery bypass graft Z95.1
[2024-03-17 13:55] LABS: CK-MB (CK-2) <0.7 ng/mL (0-5.0)
== END 2024-03-16 12:35 | disposition home or self-care (01) | DRG 303 ==
LOC: ER 16:48 → ICU 17:27
PROVIDERS: Admitting Provider Family Medicine; Emergency Provider Student in an Organized Health Care Education/Training Program; PCP Family Medicine; Visit Provider Family Medicine
DX: I25.110 Atherosclerotic heart disease of native coronary artery with unstable angina pectoris (principal); Z95.1 Presence of aortocoronary bypass graft; Z95.5 Presence of coronary angioplasty implant and graft; Z79.01 Long term (current) use of anticoagulants
CPT/HCPCS: 36415; 71045; 80053; 80061; 82553; 83036; 83605; 83735; 83880; 84100; 84443; 84484; 85025; 85049; 85378; 85610; 85730; 93005; 93306; 94664; 96372; 96374; 96376; 99285; C9113; J1170; J1644; J2550; J3010; J3490; J7030

== ENCOUNTER 2024-11-07 15:35 | Emergency (ER) | payer OTHER, SELFPAY ==
[2024-11-07] VITALS (10 sets, daily range): BP systolic 146–181; BP diastolic 86–101; PULSE 51–59; RESP 11–19; TEMP 36.5; O2SAT 94–100; BMI 31.4
--- NOTE | 2024-11-07 15:36 | XR_ITS ---
WS: [id number] XR chest 1V portable [id number] REASON FOR EXAM: chest pain FINDINGS: Chest is unchanged compared to 03/15/2024. The heart is at the upper limits of normal in size. Thoracic aorta is mildly tortuous. Sternal sutures with previous coronary artery bypass surgery. Coronary artery stents. Calcified granulomas disease bilaterally. No acute pulmonary parenchymal or pleural abnormality. XR/XR chest 1V portable [id number] IMPRESSION: Stable chest with no acute abnormality.
--- NOTE | 2024-11-07 15:36 | ECG_ITS ---
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1965 Requested By: Ana Aranda Order Number: [id number] Aimee MD: MARIANN RUELAS Measurements Intervals [place] Rate: 56 P: 57 [place]: 154 QRS: 68 QRSD: 98 T: 82 QT: 441 QTc: 428 Interpretive Statements SINUS BRADYCARDIA INCOMPLETE RIGHT BUNDLE BRANCH BLOCK [90+ ms QRS DURATION, TERMINAL R IN V1/V2, 40+ ms S IN I/aVL/V4/V5/V6] MINIMAL ST DEPRESSION [0.025+ mV ST DEPRESSION] Compared to ECG 03/15/2024 16:52:06 ST (T wave) deviation now present Electronically Signed On 11-08-2024 19:17:10 STAPLE CUTTER by MARIANN RUELAS [email or web address]
--- NOTE | 2024-11-07 16:02 | W.ED.CHESTPA ---
Documented by User: Marquise Gonzalez DO 11/08/24 06:23 HPI - Chest Pain General: Chief Complaint: Chest Pain Stated Complaint: chest pains Time Seen by Provider: 11/07/24 16:00 History of Present Illness: Associated symptoms: Deny abdominal pain, dyspnea or fever(s) Related Data Home Medications ?Medication ?Instructions ?Recorded ?Confirmed alfuzosin 10 mg tablet,extended 10 mg PO DAILY 12/07/20 11/07/24 release 24 hr apixaban 5 mg tablet (Eliquis) 5 mg PO BID 12/07/20 11/07/24 ezetimibe 10 mg tablet 10 mg PO DAILY 12/07/20 11/07/24 nitroglycerin 0.4 mg sublingual 0.4 mg sublingual Q5M PRN Angina 01/10/21 11/07/24 tablet clonazepam 1 mg tablet 1 mg PO DAILY 11/07/24 11/07/24 clopidogrel 75 mg tablet 75 mg PO DAILY 11/07/24 11/07/24 ergocalciferol (vitamin D2) 1,250 1,250 mcg PO Q7D 11/07/24 11/07/24 mcg (50,000 unit) capsule evolocumab 140 mg/mL subcutaneous 140 mg SUBCUT Q28D 11/07/24 11/07/24 pen injector (Shey Parker) hydrocodone 5 mg-acetaminophen 325 1 tab PO Q6H 11/07/24 11/07/24 mg tablet hydromorphone 2 mg tablet 2 mg PO Q6H 11/07/24 11/07/24 metformin 500 mg tablet,extended 500 mg PO BID 11/07/24 11/07/24 release 24 hr metoprolol succinate 50 mg 50 mg PO DAILY 11/07/24 11/07/24 tablet,extended release 24 hr pantoprazole 40 mg tablet,delayed 40 mg PO DAILY 11/07/24 11/07/24 release promethazine 25 mg tablet 25 mg PO QID 11/07/24 11/07/24 Previous Rx's ?Medication ?Instructions ?Recorded fluoxetine 20 mg capsule 60 mg (3 x 20 mg) PO DAILY #90 caps 01/10/21 Allergies Allergy/AdvReac Type Severity Reaction Status Date / Time metoclopramide (From Reglan) Allergy Severe agitation Verified 03/15/24 13:55 Opioids - Morphine Analogues Allergy Mild does not Verified 03/15/24 13:55 work isosorbide Allergy ADR-Blurry Verified 03/15/24 13:58 Vision lisinopril Allergy ADR-Cough Verified 03/15/24 13:58 prochlorperazine (From Allergy ADR-Agitate Verified 03/15/24 13:55 Compazine) d MONONITRATE Allergy ADR-Blurry Uncoded 03/15/24 13:58 Vision Review of Systems Const: Denies: fever(s) or chills Card: Denies: chest pain Resp: Denies: dyspnea GI: Denies: abdominal pain : Denies: dysuria, urinary frequency or urinary urgency Musc: Denies: neck pain or back pain Skin/Breast: Denies: rash PFSH ED PFSH: Medical History History of CAD (coronary artery disease) Surgical History History of heart artery stent History of coronary artery bypass graft Family History Other CAD (coronary artery disease) Social History Smoking and tobacco/nicotine status: never used tobacco/nicotine Alcohol intake: never Substance/Drug Use: never Current gender identity: Male Physical Exam Const: COMMON NORMALS: no acute distress GENERAL APPEARANCE: cooperative and comfortable ORIENTATION/CONSCIOUSNESS: Yes awake, Yes oriented to person, Yes oriented to place and Yes oriented to time HENMT: COMMON NORMALS: normocephalic, atraumatic and hearing grossly normal bilaterally HEAD & SCALP: normocephalic and atraumatic Resp: COMMON NORMALS: normal respiratory effort, No retractions, No use of accessory muscles and clear to auscultation bilaterally AUSCULTATION: clear to auscultation bilaterally Cardio: COMMON NORMALS: regular rate, regular rhythm and No murmurs present (Cardio) RATE: regular rate RHYTHM: regular rhythm GI: COMMON NORMALS: Soft to palpation and No hepatosplenomegaly present AUSCULTATION: Yes normoactive bowel sounds PALPATION: Yes Soft to palpation, No Tenderness to palpation present (GI), No Guarding due to palpation present (GI) and Yes No hepatosplenomegaly present Extremity: COMMON NORMALS: normal to inspection, capillary refill normal, no clubbing, cyanosis or edema, no calf tenderness and no pedal edema Neuro: SENSORIUM/ORIENTATION: Yes oriented to person, Yes oriented to place and Yes oriented to time Skin: COMMON NORMALS: no rashes or lesions noted GENERAL SKIN EXAM: no rashes or lesions noted Course Vital Signs: Vital signs: Vital Signs Temperature 97.7 F 11/07/24 15:44 Pulse Rate 54 L 11/07/24 20:50 Respiratory Rate 16 11/07/24 20:50 Blood Pressure 151/89 11/07/24 20:50 Pulse Oximetry 95 11/07/24 20:50 Oxygen Delivery Me thod Room Air 11/07/24 15:44 MDM - Chest Pain Medical Decision Making Care signed out to Dr. Mackenzie at change of shift. See final notes for diagnosis and disposition. EKG revealed sinus rhythm with no significant ST segment abnormalities. Chest x-ray was normal. CBC and CMP were normal. Baseline troponin was 9 with a 2-hour level at 8. Patient was given 1 mg of Dilaudid IV total and 25 mg of Phenergan IM. He is feeling significantly better now. He states he does have an appointment with the transplant team on Sunday. Patient states he is feeling well enough to go home he just wanted to make sure he was not having a heart attack. Patient was discharged in stable condition to follow-up on Sunday as scheduled. Medical Records I reviewed the patient's medical records. Lab Data I reviewed the patient's lab results. 11/07/24 16:04 11/07/24 16:04 Radiology Impressions Chest X-Ray 11/07/24 15:36 IMPRESSION: Stable chest with no acute abnormality. Laboratory Results WBC 6.93 10^3/uL (3.29-11.43) 11/07/24 16:04 RBC 4.59 10^6/uL (3.85-5.65) 11/07/24 16:04 Hgb 13.30 g/dL (11.27-16.99) 11/07/24 16:04 Hct 41.3 % (37-53) 11/07/24 16:04 MCV 90.0 fl (82-101) 11/07/24 16:04 MCH 29.0 pg (27-33) 11/07/24 16:04 MCHC 32.2 g/dL (30-55) 11/07/24 16:04 RDW 13.7 % (12.1-15.1) 11/07/24 16:04 Plt Count 191 10^3/cmm (157-399) 11/07/24 16:04 MPV 9.8 fL (7.4-10.4) 11/07/24 16:04 Neut % (Auto) 61.0 % 11/07/24 16:04 Lymph % (Auto) 26.7 % 11/07/24 16:04 [place] % (Auto) 8.5 % 11/07/24 16:04 Eos % (Auto) 2.9 % 11/07/24 16:04 Baso % (Auto) 0.6 % 11/07/24 16:04 Neut # (Auto) 4.23 10^3/uL (1.8-7.7) 11/07/24 16:04 Lymph # (Auto) 1.9 10^3/uL (0.8-4.8) 11/07/24 16:04 [place] # (Auto) 0.6 10^3/uL (0.2-0.9) 11/07/24 16:04 Eos # (Auto) 0.2 10^3/uL (0.0-0.8) 11/07/24 16:04 Baso # (Auto) 0.0 10^3/uL (0.0-0.1) 11/07/24 16:04 Nucleated RBC % (auto) 0 % 11/07/24 16:04 Nucleated RBCs # 0.0 /100WBC 11/07/24 16:04 Sodium 139 mmol/L (136-145) 11/07/24 16:04 Potassium 4.0 mmol/L (3.5-5.1) 11/07/24 16:04 Chloride 102 mmol/L (98-107) 11/07/24 16:04 Carbon Dioxide 23 mmol/L (22-29) 11/07/24 16:04 Anion Gap 18.0 (5-19) 11/07/24 16:04 BUN 11 mg/dL (6-20) 11/07/24 16:04 Creatinine 0.9 mg/dL (0.7-1.2) 11/07/24 16:04 GFR Calculation 86.7 mL/min (90-130) L 11/07/24 16:04 Glucose 91 mg/dL (65-115) 11/07/24 16:04 Calculated Osmolality 287 mOsm/kg (285-295) 11/07/24 16:04 Calcium 9.4 mg/dL (8.5-10.5) 11/07/24 16:04 Total Bilirubin 0.4 mg/dL (0.15-1.2) 11/07/24 16:04 AST 23 U/L (0-40) 11/07/24 16:04 ALT 14 U/L (0-41) 11/07/24 16:04 Alkaline Phosphatase 109 U/L (40-130) 11/07/24 16:04 Troponin T Baseline 9 ng/L (0-15) 11/07/24 16:04 Troponin T 120 Minute 8.32 ng/L (0-15) 11/07/24 18:32 Delta Troponin T -0.68 ABS# (0-10) L 11/07/24 18:32 Total Protein 7.5 g/dL (6.6-8.7) 11/07/24 16:04 Albumin 4.4 g/dL (3.5-5.2) 11/07/24 16:04 Globulin 3.1 g/dL (1.3-4.6) 11/07/24 16:04 Discharge Plan Discharge Patient Disposition: Home Clinical Impression: Chest pain Qualifiers: Chest pain type: unspecified Qualified Code(s): R07.9 - Chest pain, unspecified Condition: Stable Prescriptions: No Action alfuzosin 10 mg tablet extended release 24 hr 10 mg PO DAILY Rx Instructions: administer after the same meal each day Eliquis 5 mg tablet 5 mg PO BID ezetimibe 10 mg tablet 10 mg PO DAILY fluoxetine 20 mg capsule 60 mg PO DAILY Qty: 90 2RF nitroglycerin 0.4 mg tablet, sublingual 0.4 mg sublingual Q5M PRN (Reason: Angina) Rx Instructions: do not exceed 3 doses per episode metoprolol succinate 50 mg tablet extended release 24 hr 50 mg PO DAILY hydrocodone-acetaminophen 5-325 mg tablet 1 tab PO Q6H clonazepam 1 mg tablet 1 mg PO DAILY clopidogrel 75 mg tablet 75 mg PO DAILY hydromorphone 2 mg tablet 2 mg PO Q6H pantoprazole 40 mg tablet,delayed release (DR/EC) 40 mg PO DAILY promethazine 25 mg tablet 25 mg PO QID ergocalciferol (vitamin D2) 1,250 mcg (50,000 unit) capsule 1,250 mcg PO Q7D metformin 500 mg tablet extended release 24 hr 500 mg PO BID Repatha SureClick 140 mg/mL pen injector 140 mg SUBCUT Q28D Discharge Orders: Discharge ED (Routine); Ordered 11/07/24 Ordered By: Naif Mackenzie Referrals: Carlin Redmond [Primary Care Provider] - Patient Instructions: Opioid Safety, Pain Management Activity Restrictions/Additional Instructions: Follow-up with your visit scheduled for next Sunday. Print Language: Vietnamese Coding Level of Care Code ED Mine Exploration Engineer for Chg Fwd Documented by User: Naif Mackenzie MD 11/07/24 20:27 HPI - Chest Pain General: Chief Complaint: Chest Pain Stated Complaint: chest pains Time Seen by Provider: 11/07/24 16:00 History of Present Illness: This patient is a 59-year-old white male who presents to the emergency department with chest pain. Patient states he does have chronic chest pain. He does have an extensive cardiac history. This episode of chest pain started 11:30 AM today. He takes Dilaudid at home for the pain and it did not help today. He is not having any shortness of breath. The pain does radiate to the left arm. Currently rates his pain an 8 on a scale of 1-10. Patient states he has had 17 stents. He is also had a CABG. States he is trying to get on a transplant list as well. Related Data Home Medications ?Medication ?Instructions ?Recorded ?Confirmed alfuzosin 10 mg tablet,extended 10 mg PO DAILY 12/07/20 11/07/24 release 24 hr apixaban 5 mg tablet (Eliquis) 5 mg PO BID 12/07/20 11/07/24 ezetimibe 10 mg tablet 10 mg PO DAILY 12/07/20 11/07/24 nitroglycerin 0.4 mg sublingual 0.4 mg sublingual Q5M PRN Angina 01/10/21 11/07/24 tablet clonazepam 1 mg tablet 1 mg PO DAILY 11/07/24 11/07/24 clopidogrel 75 mg tablet 75 mg PO DAILY 11/07/24 11/07/24 ergocalciferol (vitamin D2) 1,250 1,250 mcg PO Q7D 11/07/24 11/07/24 mcg (50,000 unit) capsule evolocumab 140 mg/mL subcutaneous 140 mg SUBCUT Q28D 11/07/24 11/07/24 pen injector (Shey Parker) hydrocodone 5 mg-acetaminophen 325 1 tab PO Q6H 11/07/24 11/07/24 mg tablet hydromorphone 2 mg tablet 2 mg PO Q6H 11/07/24 11/07/24 metformin 500 mg tablet,extended 500 mg PO BID 11/07/24 11/07/24 release 24 hr metoprolol succinate 50 mg 50 mg PO DAILY 11/07/24 11/07/24 tablet,extended release 24 hr pantoprazole 40 mg tablet,delayed 40 mg PO DAILY 11/07/24 11/07/24 release promethazine 25 mg tablet 25 mg PO QID 11/07/24 11/07/24 Previous Rx's ?Medication ?Instructions ?Recorded fluoxetine 20 mg capsule 60 mg (3 x 20 mg) PO DAILY #90 caps 01/10/21 Allergies Allergy/AdvReac Type Severity Reaction Status Date / Time metoclopramide (From Reglan) Allergy Severe agitation Verified 03/15/24 13:55 Opioids - Morphine Analogues Allergy Mild does not Verified 03/15/24 13:55 work isosorbide Allergy ADR-Blurry Verified 03/15/24 13:58 Vision lisinopril Allergy ADR-Cough Verified 03/15/24 13:58 prochlorperazine (From Allergy ADR-Agitate Verified 03/15/24 13:55 Compazine) d MONONITRATE Allergy ADR-Blurry Uncoded 03/15/24 13:58 Vision Review of Systems General: Reports: 10 or more systems reviewed and unremarkable except in HPI and below Card: Reports: chest pain [facility] ED PFSH: Medical History History of CAD (coronary artery disease) Surgical History History of heart artery stent History of coronary artery bypass graft Family History Other CAD (coronary artery disease) Social History Smoking and tobacco/nicotine status: never used tobacco/nicotine Alcohol intake: never Substance/Drug Use: never Current gender identity: Male Physical Exam Const: COMMON NORMALS: patient oriented x3 HENMT: COMMON NORMALS: Normal nasal mucous membranes and turbinates present FACE & SINUS: normal facial exam NOSE: Normal nasal mucous membranes and turbinates present Eye: COMMON NORMALS: Equal, round and reactive pupils present, EOMs intact bilaterally and conjunctivae normal GENERAL EYE: appearance normal, both eyes and all related structures CONJUNCTIVA: Yes conjunctivae normal PUPIL: Yes Equal, round and reactive pupils present Neck/C-Spine: COMMON NORMALS: supple and no JVD Chest: COMMONS NORMALS: normal inspection of the chest Cardio: COMMON NORMALS: no JVD : COMMON NORMALS: Yes no CVA tenderness BLADDER/KIDNEY EXAM: Yes no CVA tenderness Back/Pelvis: COMMON NORMALS: no CVA tenderness and thoracic and lumbar spine normal to inspection Neuro: COMMON NORMALS: patient oriented x3 and CN's II-XII intact bilaterally Psych: COMMON NORMALS: mental status grossly normal, Normal thought process present and cooperative THOUGHT PROCESS: Normal thought process present Course Vital Signs: Vital signs: Vital Signs Temperature 97.7 F 11/07/24 15:44 Pulse Rate 54 L 11/07/24 20:50 Respiratory Rate 16 11/07/24 20:50 Blood Pressure 151/89 11/07/24 20:50 Pulse Oximetry 95 11/07/24 20:50 Oxygen Delivery Me thod Room Air 11/07/24 15:44 MDM - Chest Pain Medical Decision Making EKG revealed sinus rhythm with no significant ST segment abnormalities. Chest x-ray was normal. CBC and CMP were normal. Baseline troponin was 9 with a 2-hour level at 8. Patient was given 1 mg of Dilaudid IV total and 25 mg of Phenergan IM. He is feeling significantly better now. He states he does have an appointment with the transplant team on Sunday. Patient states he is feeling well enough to go home he just wanted to make sure he was not having a heart attack. Patient was discharged in stable condition to follow-up on Sunday as scheduled. Lab Data 11/07/24 16:04 11/07/24 16:04 Radiology Impressions Chest X-Ray 11/07/24 15:36 IMPRESSION: Stable chest with no acute abnormality. Laboratory Results WBC 6.93 10^3/uL (3.29-11.43) 11/07/24 16:04 RBC 4.59 10^6/uL (3.85-5.65) 11/07/24 16:04 Hgb 13.30 g/dL (11.27-16.99) 11/07/24 16:04 Hct 41.3 % (37-53) 11/07/24 16:04 MCV 90.0 fl (82-101) 11/07/24 16:04 MCH 29.0 pg (27-33) 11/07/24 16:04 MCHC 32.2 g/dL (30-55) 11/07/24 16:04 RDW 13.7 % (12.1-15.1) 11/07/24 16:04 Plt Count 191 10^3/cmm (157-399) 11/07/24 16:04 MPV 9.8 fL (7.4-10.4) 11/07/24 16:04 Neut % (Auto) 61.0 % 11/07/24 16:04 Lymph % (Auto) 26.7 % 11/07/24 16:04 [place] % (Auto) 8.5 % 11/07/24 16:04 Eos % (Auto) 2.9 % 11/07/24 16:04 Baso % (Auto) 0.6 % 11/07/24 16:04 Neut # (Auto) 4.23 10^3/uL (1.8-7.7) 11/07/24 16:04 Lymph # (Auto) 1.9 10^3/uL (0.8-4.8) 11/07/24 16:04 [place] # (Auto) 0.6 10^3/uL (0.2-0.9) 11/07/24 16:04 Eos # (Auto) 0.2 10^3/uL (0.0-0.8) 11/07/24 16:04 Baso # (Auto) 0.0 10^3/uL (0.0-0.1) 11/07/24 16:04 Nucleated RBC % (auto) 0 % 11/07/24 16:04 Nucleated RBCs # 0.0 /100WBC 11/07/24 16:04 Sodium 139 mmol/L (136-145) 11/07/24 16:04 Potassium 4.0 mmol/L (3.5-5.1) 11/07/24 16:04 Chloride 102 mmol/L (98-107) 11/07/24 16:04 Carbon Dioxide 23 mmol/L (22-29) 11/07/24 16:04 Anion Gap 18.0 (5-19) 11/07/24 16:04 BUN 11 mg/dL (6-20) 11/07/24 16:04 Creatinine 0.9 mg/dL (0.7-1.2) 11/07/24 16:04 GFR Calculation 86.7 mL/min (90-130) L 11/07/24 16:04 Glucose 91 mg/dL (65-115) 11/07/24 16:04 Calculated Osmolality 287 mOsm/kg (285-295) 11/07/24 16:04 Calcium 9.4 mg/dL (8.5-10.5) 11/07/24 16:04 Total Bilirubin 0.4 mg/dL (0.15-1.2) 11/07/24 16:04 AST 23 U/L (0-40) 11/07/24 16:04 ALT 14 U/L (0-41) 11/07/24 16:04 Alkaline Phosphatase 109 U/L (40-130) 11/07/24 16:04 Troponin T Baseline 9 ng/L (0-15) 11/07/24 16:04 Troponin T 120 Minute 8.32 ng/L (0-15) 11/07/24 18:32 Delta Troponin T -0.68 ABS# (0-10) L 11/07/24 18:32 Total Protein 7.5 g/dL (6.6-8.7) 11/07/24 16:04 Albumin 4.4 g/dL (3.5-5.2) 11/07/24 16:04 Globulin 3.1 g/dL (1.3-4.6) 11/07/24 16:04 All radiology interpretation(s) finalized by discharge Discharge Plan Discharge Patient Disposition: Home Clinical Impression: Chest pain Qualifiers: Chest pain type: unspecified Qualified Code(s): R07.9 - Chest pain, unspecified Condition: Stable Prescriptions: No Action alfuzosin 10 mg tablet extended release 24 hr 10 mg PO DAILY Rx Instructions: administer after the same meal each day Eliquis 5 mg tablet 5 mg PO BID ezetimibe 10 mg tablet 10 mg PO DAILY fluoxetine 20 mg capsule 60 mg PO DAILY Qty: 90 2RF nitroglycerin 0.4 mg tablet, sublingual 0.4 mg sublingual Q5M PRN (Reason: Angina) Rx Instructions: do not exceed 3 doses per episode metoprolol succinate 50 mg tablet extended release 24 hr 50 mg PO DAILY hydrocodone-acetaminophen 5-325 mg tablet 1 tab PO Q6H clonazepam 1 mg tablet 1 mg PO DAILY clopidogrel 75 mg tablet 75 mg PO DAILY hydromorphone 2 mg tablet 2 mg PO Q6H pantoprazole 40 mg tablet,delayed release (DR/EC) 40 mg PO DAILY promethazine 25 mg tablet 25 mg PO QID ergocalciferol (vitamin D2) 1,250 mcg (50,000 unit) capsule 1,250 mcg PO Q7D metformin 500 mg tablet extended release 24 hr 500 mg PO BID Repatha SureClick 140 mg/mL pen injector 140 mg SUBCUT Q28D Discharge Orders: Discharge ED (Routine); Ordered 11/07/24 Ordered By: Naif Mackenzie Referrals: Carlin Redmond [Primary Care Provider] - Patient Instructions: Opioid Safety, Pain Management Activity Restrictions/Additional Instructions: Follow-up with your visit scheduled for next Sunday. Print Language: Vietnamese Coding Level of Care Code ED Mine Exploration Engineer for Ceci Naranjo
[2024-11-07 16:17] LABS: Basophils % 0.6 %; Eosinophils # 0.2 10^3/uL (0.0-0.8); Eosinophils % 2.9 %; Hematocrit 41.3 % (37-53); Lymphocytes # 1.9 10^3/uL (0.8-4.8); Lymphocytes % 26.7 %; Mean Corpuscular HGB Conc 32.2 g/dL (30-55); Mean Platelet Volume 9.8 fL (7.4-10.4); Monocytes # 0.6 10^3/uL (0.2-0.9); Monocytes % 8.5 %; Neutrophils # 4.23 10^3/uL (1.8-7.7); Nucleated Red Blood Cells % 0 %; Platelet Count 191 10^3/cmm (157-399); Red Blood Count 4.59 10^6/uL (3.85-5.65); Red Cell Distribution Width 13.7 % (12.1-15.1); White Blood Count 6.93 10^3/uL (3.29-11.43)
[2024-11-07 16:37] LABS: Troponin(5th) Baseline 9 ng/L (0-15)
[2024-11-07 16:44] LABS: Alanine Aminotransferase 14 U/L (0-41); Albumin Level 4.4 g/dL (3.5-5.2); Alkaline Phosphatase 109 U/L (40-130); Aspartate Amino Transferase 23 U/L (0-40); Blood Urea Nitrogen 11 mg/dL (6-20); Calcium 9.4 mg/dL (8.5-10.5); Carbon Dioxide 23 mmol/L (22-29); Chloride 102 mmol/L (98-107); Creatinine Clr Calc Pharmacy 99.4599; Globulin 3.1 g/dL (1.3-4.6); Glomerular Filtration Rate 86.7 mL/min (90-130); Glucose 91 mg/dL (65-115); Osmolality Calculated 287 mOsm/kg (285-295); Sodium 139 mmol/L (136-145); Total Bilirubin 0.4 mg/dL (0.15-1.2); Total Protein 7.5 g/dL (6.6-8.7)
--- NOTE | 2024-11-07 16:57 | ECG_ITS ---
[employer] Test Date: 2024-11-07 Pat Name: Anthony Wilde Department: Room: Gender: Male Layer Out Plate Glass: : 1965 Requested By: Ana Aranda Order Number: [id number] Aimee MD: MARIANN RUELAS Measurements Intervals [place] Rate: 55 P: 49 MS: 158 QRS: 64 QRSD: 96 T: 81 QT: 457 QTc: 439 Interpretive Statements SINUS BRADYCARDIA INCOMPLETE RIGHT BUNDLE BRANCH BLOCK [90+ ms QRS DURATION, TERMINAL R IN V1/V2, 40+ ms S IN I/aVL/V4/V5/V6] MODERATE ST DEPRESSION [0.05+ mV ST DEPRESSION] Compared to ECG 11/07/2024 15:41:21 No significant changes Electronically Signed On 11-08-2024 19:33:16 ICT TEACHER by MARIANN RUELAS [email or web address]
[2024-11-07 18:53] LABS: Troponin 5 2HR 8.32 ng/L (0-15)
[2024-11-07 18:54] LABS: Troponin 5 2HR Delta -0.68 ABS# (0-10)
[2024-11-07] MEDS: HYDROMORPHONE HCL 0.5 MG/0.5 ML INJ IVP ×2 (20:05→20:40)
[2024-11-07] MEDS: promethazine 25 mg/mL SDV 1 mL IM (20:05)
== END 2024-11-07 20:58 | disposition home or self-care (01) ==
PROVIDERS: Physician Assistant; Emergency Provider Emergency Medicine; PCP Family Medicine
DX: R07.9 Chest pain, unspecified (principal); Z79.01 Long term (current) use of anticoagulants; Z79.02 Long term (current) use of antithrombotics/antiplatelets; Z79.84 Long term (current) use of oral hypoglycemic drugs; I25.10 Atherosclerotic heart disease of native coronary artery without angina pectoris; Z95.1 Presence of aortocoronary bypass graft
CPT/HCPCS: 36415; 71045; 80053; 84484; 85025; 93005; 96372; 96374; 96376; 99285; J1171; J2550

== ENCOUNTER 2024-11-20 14:45 | Emergency (ER) | payer OTHER, SELFPAY ==
[2024-11-20 14:49] VITALS: BP 162/80; PULSE 58; TEMP 36.5; O2SAT 100; BMI 31.4
--- NOTE | 2024-11-20 14:59 | XRR_ITS ---
PROCEDURE INFORMATION: Exam: XR Chest Exam date and time: 11/20/2024 4:10 PM Age: 59 years old Clinical indication: Pain; Chest pressure; Additional info: Cp TECHNIQUE: Imaging protocol: Radiologic exam of the chest. Views: 1 view. COMPARISON: CR XR chest 1V portable [id number] 11/07/2024 3:44 PM FINDINGS: Lungs: Similar scarring in the left mid to lower lung zones. No new airspace disease. Pleural spaces: Unremarkable. No pleural effusion. No pneumothorax. Heart/Mediastinum: Stable cardiomediastinal silhouette. Coronary artery stents are again seen. Vasculature: Mildly tortuous thoracic aorta. Bones/joints: Post median sternotomy. XR/XR chest 1V portable [id number] IMPRESSION: Stable appearance of the chest.
--- NOTE | 2024-11-20 15:00 | ECG_ITS ---
[facility] Date: [facility]24-[facility]20 Pat Name: Anthony Wilde Department: Room: Gender: Male Data Entry Coordinator: : 1965 Requested By: Tai Cerna Order Number: [id number] Yu MD: Valdo Cruz M.D. Measurements Intervals [place] Rate: 56 P: 64 VT: 154 QRS: 78 QRSD: 94 T: 53 QT: 448 QTc: 434 Interpretive Statements SINUS BRADYCARDIA INCOMPLETE RIGHT BUNDLE BRANCH BLOCK [90+ ms QRS DURATION, TERMINAL R IN V1/V2, 40+ ms S IN I/aVL/V4/V5/V6] MINIMAL ST DEPRESSION [0.025+ mV ST DEPRESSION] Compared to ECG 11/07/2024 16:57:01 No significant changes Electronically Signed On 11-22-2024 07:51:49 PROGRAM MANAGEMENT INTERN by Valdo Cruz M.D. [email or web address] [id number]
[2024-11-20 15:30] VITALS: BP 143/92; PULSE 55; RESP 12; O2SAT 96
--- NOTE | 2024-11-20 15:50 | W.ED.CHESTPA ---
HPI - Chest Pain General: Chief Complaint: Chest Pain Stated Complaint: chest pain, left arm pain Time Seen by Provider: 11/20/24 15:34 Source: patient Mode of arrival: ambulatory Limitations: no limitations History of Present Illness: 56-year-old male history of multiple cardiac issues along with coronary artery disease states he started having some chest pain today around noon. He states the pain was pressure type pain in the center of his chest states he did take nitro his pain is improving rates it a 2 out of 10 he states he gets chest pains often needs just usually does not last this long. He denies any fevers has had some mild shortness of breath denies any cough. He has had some nausea Associated symptoms: Deny abdominal pain, dyspnea, fever(s), nausea or vomiting Related Data Home Medications ?Medication ?Instructions ?Recorded ?Confirmed alfuzosin 10 mg tablet,extended 10 mg PO DAILY 12/07/20 11/20/24 release 24 hr apixaban 5 mg tablet (Eliquis) 5 mg PO BID 12/07/20 11/20/24 ezetimibe 10 mg tablet 10 mg PO DAILY 12/07/20 11/20/24 nitroglycerin 0.4 mg sublingual 0.4 mg sublingual Q5M PRN Angina 01/10/21 11/20/24 tablet clonazepam 1 mg tablet 1 mg PO DAILY 11/07/24 11/20/24 clopidogrel 75 mg tablet 75 mg PO DAILY 11/07/24 11/20/24 evolocumab 140 mg/mL subcutaneous 140 mg SUBCUT Q28D 11/07/24 11/20/24 pen injector (Shey Parker) hydromorphone 2 mg tablet 2 mg PO Q6H 11/07/24 11/20/24 metformin 500 mg tablet,extended 500 mg PO BID 11/07/24 11/20/24 release 24 hr metoprolol succinate 50 mg 50 mg PO DAILY 11/07/24 11/20/24 tablet,extended release 24 hr pantoprazole 40 mg tablet,delayed 40 mg PO DAILY 11/07/24 11/20/24 release promethazine 25 mg tablet 25 mg PO QID 11/07/24 11/20/24 hydrocodone 5 mg-acetaminophen 325 1 tab PO Q6H PRN Pain 11/20/24 11/20/24 mg tablet Previous Rx's ?Medication ?Instructions ?Recorded fluoxetine 20 mg capsule 60 mg (3 x 20 mg) PO DAILY #90 caps 01/10/21 Allergies Allergy/AdvReac Type Severity Reaction Status Date / Time metoclopramide (From Reglan) Allergy Severe agitation Verified 11/20/24 14:55 Opioids - Morphine Analogues Allergy Mild does not Verified 11/20/24 14:55 work isosorbide Allergy ADR-Blurry Verified 11/20/24 14:55 Vision lisinopril Allergy ADR-Cough Verified 11/20/24 14:55 prochlorperazine (From Allergy ADR-Agitate Verified 11/20/24 14:55 Compazine) d MONONITRATE Allergy ADR-Blurry Uncoded 11/20/24 14:55 Vision Review of Systems Const: Denies: fever(s), chills, body aches or change in appetite ENMT: Denies: throat pain or dental pain Card: Reports: chest pain Resp: Denies: dyspnea GI: Denies: abdominal pain, nausea, vomiting or diarrhea Musc: Denies: neck pain or back pain Skin/Breast: Denies: rash Neuro: Denies: headache(s) PFSH ED PFSH: Medical History History of CAD (coronary artery disease) Surgical History History of heart artery stent History of coronary artery bypass graft Family History Other CAD (coronary artery disease) Social History Smoking and tobacco/nicotine status: never used tobacco/nicotine Alcohol intake: never Substance/Drug Use: never Current gender identity: Male Physical Exam Const: COMMON NORMALS: no acute distress, patient oriented x3 and healthy appearing HENMT: COMMON NORMALS: normocephalic and atraumatic HEAD & SCALP: normocephalic and atraumatic Eye: COMMON NORMALS: conjunctivae normal CONJUNCTIVA: Yes conjunctivae normal Neck/C-Spine: COMMON NORMALS: full ROM and supple Chest: COMMONS NORMALS: normal inspection of the chest Resp: COMMON NORMALS: normal respiratory effort, No retractions, No use of accessory muscles and clear to auscultation bilaterally AUSCULTATION: clear to auscultation bilaterally Cardio: COMMON NORMALS: regular rate, regular rhythm and No murmurs present (Cardio) RATE: regular rate RHYTHM: regular rhythm GI: COMMON NORMALS: Normal to inspection, nondistended, normoactive bowel sounds present, Soft to palpation, non-tender and no masses PALPATION: Yes Soft to palpation Extremity: COMMON NORMALS: normal to inspection and full ROM Neuro: COMMON NORMALS: patient oriented x3, moves all extremities and no focal motor deficits Psych: COMMON NORMALS: mental status grossly normal, Normal thought process present and cooperative THOUGHT PROCESS: Normal thought process present Skin: COMMON NORMALS: no rashes or lesions noted and no wounds GENERAL SKIN EXAM: no rashes or lesions noted Course Vital Signs: Vital signs: Vital Signs Temperature 97.7 F 11/20/24 14:49 Pulse Rate 52 L 11/20/24 17:46 Respiratory Rate 14 11/20/24 17:46 Blood Pressure 151/83 11/20/24 17:46 Pulse Oximetry 99 11/20/24 17:46 Oxygen Delivery Me thod Room Air 11/20/24 17:46 MDM - Chest Pain Medical Decision Making Patient presents here with chest pain his pain is resolved he has no signs of ACS no signs of dissection or pulm embolism troponins are negative x-rays negative EKGs are normal he stable for discharge she has follow-up with cardiology in a couple weeks he is to follow-up as scheduled return if worsening. Medical Records I reviewed the patient's medical records. Lab Data I reviewed the patient's lab results. 11/20/24 15:55 11/20/24 15:55 Radiology Impressions Chest X-Ray 11/20/24 14:59 IMPRESSION: Stable appearance of the chest. Laboratory Results WBC 5.41 10^3/uL (3.29-11.43) 11/20/24 15:55 RBC 4.23 10^6/uL (3.85-5.65) 11/20/24 15:55 Hgb 12.60 g/dL (11.27-16.99) 11/20/24 15:55 Hct 36.9 % (37-53) L 11/20/24 15:55 MCV 87.2 fl (82-101) 11/20/24 15:55 MCH 29.8 pg (27-33) 11/20/24 15:55 MCHC 34.1 g/dL (30-55) 11/20/24 15:55 RDW 13.7 % (12.1-15.1) 11/20/24 15:55 Plt Count 158 10^3/cmm (157-399) 11/20/24 15:55 MPV 10.1 fL (7.4-10.4) 11/20/24 15:55 Neut % (Auto) 66.3 % 11/20/24 15:55 Lymph % (Auto) 22.4 % 11/20/24 15:55 [place] % (Auto) 8.3 % 11/20/24 15:55 Eos % (Auto) 2.2 % 11/20/24 15:55 Baso % (Auto) 0.6 % 11/20/24 15:55 Neut # (Auto) 3.59 10^3/uL (1.8-7.7) 11/20/24 15:55 Lymph # (Auto) 1.2 10^3/uL (0.8-4.8) 11/20/24 15:55 [place] # (Auto) 0.5 10^3/uL (0.2-0.9) 11/20/24 15:55 Eos # (Auto) 0.1 10^3/uL (0.0-0.8) 11/20/24 15:55 Baso # (Auto) 0.0 10^3/uL (0.0-0.1) 11/20/24 15:55 Nucleated RBC % (auto) 0 % 11/20/24 15:55 Nucleated RBCs # 0.0 /100WBC 11/20/24 15:55 PT 14.50 SECONDS (12.1-14.9) 11/20/24 17:12 INR 1.06 (0.8-1.2) 11/20/24 17:12 Sodium 134 mmol/L (136-145) L 11/20/24 15:55 Potassium 4.3 mmol/L (3.5-5.1) 11/20/24 15:55 Chloride 101 mmol/L (98-107) 11/20/24 15:55 Carbon Dioxide 19 mmol/L (22-29) L 11/20/24 15:55 Anion Gap 18.3 (5-19) 11/20/24 15:55 BUN 14 mg/dL (6-20) 11/20/24 15:55 Creatinine 0.9 mg/dL (0.7-1.2) 11/20/24 15:55 GFR Calculation 86.7 mL/min (90-130) L 11/20/24 15:55 Glucose 114 mg/dL (65-115) 11/20/24 15:55 Calculated Osmolality 279 mOsm/kg (285-295) L 11/20/24 15:55 Calcium 9.3 mg/dL (8.5-10.5) 11/20/24 15:55 Total Bilirubin 0.7 mg/dL (0.15-1.2) 11/20/24 15:55 AST 22 U/L (0-40) 11/20/24 15:55 ALT 10 U/L (0-41) 11/20/24 15:55 Alkaline Phosphatase 90 U/L (40-130) 11/20/24 15:55 Troponin T Baseline 9 ng/L (0-15) 11/20/24 15:55 Troponin T 120 Minute 11.50 ng/L (0-15) 11/20/24 18:40 Delta Troponin T 2.50 ABS# (0-10) 11/20/24 18:40 Total Protein 7.2 g/dL (6.6-8.7) 11/20/24 15:55 Albumin 4.2 g/dL (3.5-5.2) 11/20/24 15:55 Globulin 3.0 g/dL (1.3-4.6) 11/20/24 15:55 Lipase 23 U/L (13-60) 11/20/24 15:55 All radiology interpretation(s) finalized by discharge EKG Data EKG 1: I personally reviewed and interpreted this EKG as follows: EKG interpretation date: 11/20/24 EKG interpretation time: 17:06 Interpretation: sinus tess hr [address] elevation qrs 109 qtc 450 EKG 2: I personally reviewed and interpreted this EKG as follows: EKG interpretation date: 11/20/24 EKG interpretation time: 17:43 Interpretation: sinus tess hr [address] or t wave abnormalities qrs 98 qtc 447 Discharge Plan Discharge Patient Disposition: Home Clinical Impression: Chest pain Condition: Stable Prescriptions: No Action alfuzosin 10 mg tablet extended release 24 hr 10 mg PO DAILY Rx Instructions: administer after the same meal each day Eliquis 5 mg tablet 5 mg PO BID ezetimibe 10 mg tablet 10 mg PO DAILY fluoxetine 20 mg capsule 60 mg PO DAILY Qty: 90 2RF nitroglycerin 0.4 mg tablet, sublingual 0.4 mg sublingual Q5M PRN (Reason: Angina) Rx Instructions: do not exceed 3 doses per episode hydrocodone-acetaminophen 5-325 mg tablet 1 tab PO Q6H MDD 4 per 24 hours PRN (Reason: Pain) metoprolol succinate 50 mg tablet extended release 24 hr 50 mg PO DAILY clonazepam 1 mg tablet 1 mg PO DAILY clopidogrel 75 mg tablet 75 mg PO DAILY hydromorphone 2 mg tablet 2 mg PO Q6H pantoprazole 40 mg tablet,delayed release (DR/EC) 40 mg PO DAILY promethazine 25 mg tablet 25 mg PO QID metformin 500 mg tablet extended release 24 hr 500 mg PO BID Repatha SureClick 140 mg/mL pen injector 140 mg SUBCUT Q28D Discharge Orders: Discharge ED (Routine); Ordered 11/20/24 Ordered By: Tai Cerna Referrals: Carlin Redmond [Primary Care Provider] - Discharge Diet: Advance as tolerated Discharge Activity: Resume usual activity Patient Instructions: Chest Pain (ED) Print Language: Greek Coding Level of Care Code ED Transverse Abdominal Muscle Nurse for Ceci Naranjo
[2024-11-20 16:00] VITALS: BP 124/80; PULSE 55; RESP 18; O2SAT 99
[2024-11-20 16:25] LABS: Basophils % 0.6 %; Eosinophils # 0.1 10^3/uL (0.0-0.8); Eosinophils % 2.2 %; Hematocrit 36.9 % (37-53); Lymphocytes # 1.2 10^3/uL (0.8-4.8); Lymphocytes % 22.4 %; Mean Corpuscular HGB Conc 34.1 g/dL (30-55); Mean Corpuscular Hemoglobin 29.8 pg (27-33); Mean Corpuscular Volume 87.2 fl (82-101); Mean Platelet Volume 10.1 fL (7.4-10.4); Monocytes # 0.5 10^3/uL (0.2-0.9); Monocytes % 8.3 %; Neutrophils # 3.59 10^3/uL (1.8-7.7); Neutrophils % 66.3 %; Nucleated Red Blood Cells % 0 %; Platelet Count 158 10^3/cmm (157-399); Red Blood Count 4.23 10^6/uL (3.85-5.65); Red Cell Distribution Width 13.7 % (12.1-15.1); White Blood Count 5.41 10^3/uL (3.29-11.43)
[2024-11-20 16:41] LABS: Troponin(5th) Baseline 9 ng/L (0-15)
[2024-11-20] MEDS: promethazine 25 mg/mL SDV 1 mL IM (16:42)
[2024-11-20] MEDS: HYDROMORPHONE HCL 0.5 MG/0.5 ML INJ 1 MG IVP ×2 (16:42→17:49)
--- NOTE | 2024-11-20 17:00 | ECG_ITS ---
[facility] Date: 2024-11-20 Pat Name: Anthony Wilde Department: Room: Gender: Male Regional Director Of Admissions: : 1965 Requested By: Tai Cerna Order Number: [id number] Yu MD: Valdo Cruz M.D. Measurements Intervals [place] Rate: 56 P: 56 GA: 157 QRS: 79 QRSD: 109 T: 64 QT: 459 QTc: 444 Interpretive Statements SINUS BRADYCARDIA INCOMPLETE RIGHT BUNDLE BRANCH BLOCK [90+ ms QRS DURATION, TERMINAL R IN V1/V2, 40+ ms S IN I/aVL/V4/V5/V6] Compared to ECG 11/20/2024 14:53:28 ST (T wave) deviation no longer present Electronically Signed On 11-22-2024 08:20:09 [employer]PER[employer] by Valdo Cruz M.D. [email or web address]
[2024-11-20 17:03] LABS: Alanine Aminotransferase 10 U/L (0-41); Albumin Level 4.2 g/dL (3.5-5.2); Alkaline Phosphatase 90 U/L (40-130); Blood Urea Nitrogen 14 mg/dL (6-20); Calcium 9.3 mg/dL (8.5-10.5); Carbon Dioxide 19 mmol/L (22-29); Chloride 101 mmol/L (98-107); Creatinine Clr Calc Pharmacy 99.4599; Glomerular Filtration Rate 86.7 mL/min (90-130); Glucose 114 mg/dL (65-115); Lipase 23 U/L (13-60); Osmolality Calculated 279 mOsm/kg (285-295); Sodium 134 mmol/L (136-145); Total Bilirubin 0.7 mg/dL (0.15-1.2); Total Protein 7.2 g/dL (6.6-8.7)
[2024-11-20 17:07] LABS: Anion Gap 18.3 (5-19); Aspartate Amino Transferase 22 U/L (0-40); Potassium 4.3 mmol/L (3.5-5.1)
[2024-11-20 17:21] LABS: Slide Review Slide Review Perform
[2024-11-20 17:46] VITALS: BP 151/83; PULSE 52; RESP 14; O2SAT 99
[2024-11-20 17:52] LABS: INR 1.06 (0.8-1.2)
[2024-11-20 19:38] VITALS: BP 140/83; PULSE 61; RESP 16; O2SAT 96
== END 2024-11-20 19:39 | disposition home or self-care (01) ==
PROVIDERS: Emergency Provider Emergency Medicine; PCP Family Medicine
DX: R07.9 Chest pain, unspecified (principal); I25.10 Atherosclerotic heart disease of native coronary artery without angina pectoris; Z79.01 Long term (current) use of anticoagulants; Z79.02 Long term (current) use of antithrombotics/antiplatelets; Z79.84 Long term (current) use of oral hypoglycemic drugs
CPT/HCPCS: 36415; 71045; 80053; 83690; 84484; 85025; 85610; 93005; 96372; 96374; 96376; 99285; J1171; J2550